=== PATIENT | female | born 1940 | race Caucasian/White ===

== ENCOUNTER 2017-04-27 14:46 | Inpatient (IN) | payer MEDICARE ==
[2017-04-27] MEDS ORDERED: Heparin 25,000 units/D5W 500 ML ONE (15:12)
[2017-04-27 15:32] LABS: #Basophils 0.1 thou/uL (0.0-0.2); #Eosinphils 0.1 thou/uL (0.0-0.7); #Lymphocytes 2.1 thou/uL (1.20-3.40); #Monocytes 0.9 thou/uL (0.11-0.59); #Neutrophils 16.5 thou/uL (1.40-6.50); %Basophils 0.3 % (0.0-1.0); %Eosinophils 0.6 % (0.0-10.0); %Lymphocytes 10.4 % (21.0-51.0); %Monocytes 4.7 % (0.0-10.0); Hematocrit 34.5 % (36.0-47.0); Mean Platelet Volume 8.3 fL (7.4-10.4); Red Blood Cell (RBC) Count 3.33 mill/uL (4.20-5.40); White Blood Cell (WBC) Count 19.7 thou/uL (4.8-10.8)
[2017-04-27 15:59] LABS: Chloride 102 mmol/L (98-107)
[2017-04-27 16:00] LABS: Calcium 8.9 mg/dL (7.8-10.44)
[2017-04-27 16:01] LABS: Globulin 2.9 g/dL (2.4-3.5); Protein, Total 5.9 g/dL (6.0-8.3)
[2017-04-27 16:02] LABS: Anion Gap 22 mmol/L (10-20); Bilirubin, Total 0.4 mg/dL (0.2-1.2); Carbon Dioxide 18 mmol/L (23-31)
[2017-04-27 16:03] LABS: Alkaline Phosphatase 75 U/L (40-150); Troponin I 1.068 ng/mL (< 0.028)
[2017-04-27 16:04] LABS: Calc. Creatinine Clearance 0 mL/min (70-130); Estimated GFR-MDRD 7
[2017-04-27 16:05] LABS: BUN (Urea Nitrogen) 45 mg/dL (9.8-20.1)
[2017-04-27 16:06] LABS: AST (SGOT) 28 U/L (5-34)
[2017-04-27 16:07] LABS: ALT (SGPT) 13 U/L (8-55); CK (CPK) 79 U/L (29-168)
--- NOTE | 2017-04-27 16:53 | RAD ---
PORTABLE CHEST: History: UT. Chest pain. Comparison: 07-17-15 FINDINGS: Left apical pleural thickening is stable. Mild nodularity in the left apex again noted. The lungs sh ow no evidence of acute infiltrate, vascular congestion or edema. Heart size upper normal. Aortic ca lcification is prominent. IMPRESSION: Stable chest findings without acute interval change. POS: H
[2017-04-27] MEDS ORDERED: Gentamicin Sulfate 80 MG in Premix Bag 1 BAG IVPB ONE (17:45)
[2017-04-27] MEDS ORDERED: Nitroglycerin 0.4 MG TAB (25 Tab Bottle) ONE (18:12)
[2017-04-27 18:42] LABS: Troponin I 1.304 ng/mL (< 0.028)
[2017-04-27] MEDS ORDERED: Nitroglycerin 0.4 MG TAB (25 Tab Bottle) SL PRN (18:52)
[2017-04-27] MEDS ORDERED: Clopidogrel Bisulfate 300 MG TAB PO SCH (19:00)
[2017-04-27] MEDS ORDERED: Heparin 25,000 units/D5W 500 ML IVPB SCH (19:00)
[2017-04-27] MEDS ORDERED: Heparin 10,000 UNITS/ 10 ML VIAL SLOW IVP SCH (19:00)
[2017-04-27] MEDS ORDERED: Pantoprazole 40 MG VIAL ONE (19:10)
[2017-04-27 19:15] LABS: Hematocrit 30.4 % (36.0-47.0)
[2017-04-27] MEDS ORDERED: Heparin 5,000 UNITS/ML VIAL ONE (19:15)
[2017-04-27 20:15] VITALS: BMI 26.4
[2017-04-27 21:07] LABS: Critical Call Chem Troponin I RESULT DECREASING
[2017-04-27] MEDS: Metoprolol Tartrate 25 MG TAB PO SCH (21:45)
[2017-04-27] MEDS: Atorvastatin Calcium 20 MG TAB PO SCH (21:46)
[2017-04-27] MEDS ORDERED: HumaLOG 300 UNITS/3 ML VIAL SC PRN (22:37)
[2017-04-27] MEDS ORDERED: Dextrose 50% Abboject 50 ML SYRINGE IVP PRN (22:37)
[2017-04-27] MEDS ORDERED: Dextrose 5% in Water 1,000 ML IV PRN (22:37)
[2017-04-27] MEDS ORDERED: Acetaminophen 500 MG TAB PO SCH (22:45)
--- NOTE | 2017-04-28 00:37 | HP ---
CHIEF COMPLAINT: Burning sensation in the chest. HISTORY OF PRESENT ILLNESS: This is a 77-year-old pleasant lady who was apparently in an usual stat e of health, got up and had just finished her peritoneal dialysis. When she experienced burning sen sation in her chest, she took some antacid, which did not give her any relief, when she tried to get up, she fell back into the chair and felt extremely weak. There was no sweating or radiation of th is pain anywhere. No fever or no chills. Because of the weakness and persistent burning pain, she decided to come to [facility] where they checked her troponin and it was elevated and they also foun d the white count to be elevated, because they were concerned for heart muscle damage, they sent out here to our emergency room where repeat troponin was 1.068. The patient also had an EKG, which nadege wed incomplete left bundle-branch block, some ST-T wave abnormalities in the lateral leads and becau se of that, she is going to be admitted to our hospital for evaluation of the burning sensation of t he chest and to rule out ACS. PAST MEDICAL HISTORY: Significant for paroxysmal atrial fibrillation, history of moderate aortic va lve stenosis, type 2 diabetes mellitus, longstanding hypertension, end-stage renal disease from hype rtensive nephropathy, on peritoneal dialysis right now. PAST SURGICAL HISTORY: Significant for status post arteriovenous fistula, status post DRIL, status post cardiac catheterization, status post cholecystectomy, status post cuffed-hemodialysis catheter placement, status post hysterectomy, status post renal arteriogram with stent placement. SOCIAL HISTORY: Does not smoke, drink, or do recreational drugs. She is retired. ALLERGIES: The patient's allergies are none. FAMILY HISTORY: Negative for diabetes and hypertension. HOME MEDICATIONS: Please see MAR. Patient's centrifugal chiller technician is Dr. Wilson who evaluated her in the past for atrial fibrillation and said sh e was in sinus. Dr. Yang is her fitter armament. Her primary care physician is Dr. Francis. REVIEW OF SYSTEMS: Significant for the burning chest pain and weakness. Otherwise, no fever, no ch ills, no headache, no hearing loss, no latencies, no cough, no diarrhea, dysuria, or polyuria. No m alexandra or mood changes. No neck pain. PHYSICAL EXAMINATION: VITAL SIGNS: Patient's blood pressure is 150/68, the recent one is 121/51, pulse is 84, respiration s 18, O2 saturation is 100% on room air, temperature afebrile. GENERAL: Patient is lying in bed, in no apparent distress right now. HEENT: Atraumatic, normocephalic. Pupils are equally round and reactive to light. Extraocular mov ements intact. Mucous membranes moist. NECK: Supple. No JVD. CHEST: Breath sounds. There are no rales or rhonchi. HEART: S1 and S2 normal, systolic murmur heard. ABDOMEN: Soft PD catheter, site looks clean. Abdomen is soft, nontender. EXTREMITIES: No cyanosis, clubbing, or edema. Distal pulses present. NEUROLOGICAL: Alert, awake, and oriented. No cranial deficits. No sensorimotor deficits. LABORATORY DATA AND DIAGNOSTICS: PTT is 59.5. CPK is 79. Sodium is 138, potassium is 4, carbon di oxide is 18, anion gap is 22, BUN is 45, creatinine is 1.96, glucose is 157, albumin is 3.0. LFTs a re normal. Troponin is 1.068. White blood cell count is 19.7 with 84 neutrophils, hemoglobin is 11 .1, hematocrit is 34.5. Patient's chest x-ray is negative. Lactic acid is pending. ASSESSMENT AND PLAN: 1. Chest discomfort with elevated troponin. Will treat it as non-ST elevation myocardial infarctio n. We will put the patient on heparin drip. We will consult Cardiology and follow their recommenda tions. We will control blood pressure and diabetes with tight control of diabetes and blood pressur e of the patient. 2. Leukocytosis without fever or abdominal pain, rule out peritonitis because the patient does urbano toneal dialysis. Dr. Yang has already ordered IV vancomycin and IV gentamicin. We will send the per itoneal fluid for culture. We will also do blood cultures of the patient. 3. End-stage renal disease on peritoneal dialysis, we will consult Dr. Yang. 4. Diabetes mellitus, on insulin sliding scale. 5. Hypertension. We will monitor that and do p.r.n. medications for now. 6. Paroxysmal atrial fibrillation. Patient in sinus rhythm right now, some acidosis, possibly meta bolic in origin. We will consult with Dr. Yang. 7. Sequential compression devices for deep venous thrombosis prophylaxis. I will work with Dr. José Antonio song and Dr. Yang and further caring for the patient.
[2017-04-28] MEDS ORDERED: Dextrose 5% in Water 1,000 ML IV PRN (03:29)
[2017-04-28] MEDS ORDERED: Ondansetron HCl/PF 4 MG/2 ML Vial IVP PRN (03:29)
[2017-04-28] MEDS ORDERED: Dextrose 50% Abboject 50 ML SYRINGE SLOW IVP PRN (03:29)
[2017-04-28] MEDS ORDERED: HYDROcodone/Acetaminophen 5/325 mg Tablet PO PRN (03:29)
[2017-04-28] MEDS ORDERED: Lidocaine 2% Viscous Solution 10 ML, Aluminum & Magnesium Hydroxide 30 ML SSW PRN ×2 (03:29)
[2017-04-28] MEDS ORDERED: Vancomycin HCl 1 GM in Sodium Chloride 0.9% 250 ML 250 ML IVPB SCH (03:29)
[2017-04-28] MEDS ORDERED: HumaLOG 300 UNITS/3 ML VIAL SC PRN ×2 (03:29→21:34)
[2017-04-28] MEDS ORDERED: Calcium Carbonate 500 MG ChewTAB PO PRN (03:29)
[2017-04-28] MEDS ORDERED: Gentamicin 80 MG/2 ML VIAL IVPB PRN (03:29)
[2017-04-28] MEDS ORDERED: Acetaminophen 325 MG TAB PO PRN (03:29)
[2017-04-28] MEDS ORDERED: Bisacodyl 5 MG TAB PO PRN (03:29)
[2017-04-28] MEDS ORDERED: Famotidine/PF 20 mg/2ml Vial SLOW IVP SCH ×2 (03:45→21:00)
[2017-04-28] MEDS ORDERED: VANCOMYCIN IVPB PRN (03:57)
[2017-04-28] MEDS ORDERED: GENTAMICIN IVPB PRN (03:57)
[2017-04-28] MEDS ORDERED: Vancomycin HCl 750 MG in Sodium Chloride 0.9% 250 ML 250 ML IVPB SCH (04:00)
[2017-04-28] MEDS ORDERED: Vancomycin HCl 500 MG in Sodium Chloride 0.9% 100 ML IVPB SCH (04:00)
[2017-04-28] MEDS ORDERED: Vancomycin HCl 1 GM in Premix Bag 1 BAG IVPB SCH (04:00)
[2017-04-28] MEDS ORDERED: HOLD VANCOMYCIN FOR LEVEL >20 FS SCH (04:00)
[2017-04-28] MEDS ORDERED: Vancomycin HCl 1.25 GM in Sodium Chloride 0.9% 250 ML 250 ML IVPB SCH ×4 (04:00)
[2017-04-28 04:20] LABS: #Basophils 0.1 thou/uL (0.0-0.2); #Eosinphils 0.3 thou/uL (0.0-0.7); #Lymphocytes 1.1 thou/uL (1.20-3.40); #Monocytes 0.7 thou/uL (0.11-0.59); #Neutrophils 13.2 thou/uL (1.40-6.50); %Basophils 0.3 % (0.0-1.0); %Eosinophils 2.2 % (0.0-10.0); %Lymphocytes 7.1 % (21.0-51.0); %Monocytes 4.7 % (0.0-10.0); Hematocrit 32.5 % (36.0-47.0); Mean Platelet Volume 8.5 fL (7.4-10.4); Red Blood Cell (RBC) Count 3.13 mill/uL (4.20-5.40); White Blood Cell (WBC) Count 15.4 thou/uL (4.8-10.8)
[2017-04-28 04:31] LABS: Lactic Acid - Sepsis 2.2 mmol/L (0.5-2.2)
[2017-04-28 04:40] LABS: Anion Gap 14 mmol/L (10-20); BUN (Urea Nitrogen) 42 mg/dL (9.8-20.1); BUN/Creatinine Ratio 7.42; Calc. Creatinine Clearance 9 mL/min (70-130); Calcium 8.9 mg/dL (7.8-10.44); Carbon Dioxide 26 mmol/L (23-31); Chloride 98 mmol/L (98-107); Estimated GFR-MDRD 7; Phosphorus 5.6 mg/dL (2.3-4.7)
[2017-04-28] MEDS: Aspirin 325 MG TAB PO SCH (08:53)
[2017-04-28] MEDS: Metoprolol Tartrate 25 MG TAB PO SCH ×2 (08:54→20:42)
--- NOTE | 2017-04-28 09:33 | CON ---
DATE OF CONSULTATION: 04/28/2017 HISTORY OF PRESENT ILLNESS: Ms. Carr is a 77-year-old white female with ESRD and admitted for pravin st pain. She described burning epigastric pain with radiation to the midsternum area of the chest. She is being admitted for rule out MN. We are now being consulted for her maintenance peritoneal d ialysis. She did underwent peritoneal dialysis last night and tolerated said treatment. REVIEW OF SYSTEMS: Patient denies any shortness of breath, but positive for chest pain. Denies any abdominal pain, no dysuria, no urinary frequency. No hematochezia, no melena, no hematemesis, no s yncopal episode, no diarrhea, no constipation, no headache, no diplopia, no hematochezia, no melena. Appetite and energy level are decreased. Positive for ? of depression. No fever or chills. MEDICATIONS: 1. Status post vancomycin, status post gentamicin. 2. [place] 5/325 q.4, aspirin 325 mg daily, Lipitor 20 mg q.p.m. 3. Heparin drip, hydralazine 10 mg IV q.4 p.r.n., Humalog sliding scale, nitroglycerin 0.4 mg subli ngual every 5 minutes p.r.n., vancomycin p.r.n. PAST MEDICAL HISTORY: ESRD - currently on peritoneal dialysis - secondary to hypertensive nephropat hy; longstanding hypertension; history of moderate aortic valve stenosis; status post acute respirat ory failure; type 2 diabetes mellitus; paroxysmal AFIB. PAST SURGICAL HISTORY: Status post PD catheter placement, status post AV fistula placement, status post DRIL, status post cardiac catheterization, status post cholecystectomy, status post cuffed hemo dialysis catheter placement, status post hysterectomy, status post renal arteriogram with stent plac ement. 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 Education high school. No history of smoking, no alcohol intake, no IV drug abuse. Status post bl ood transfusion. ALLERGIES: None. TRAUMA: None. IMMUNIZATIONS: Up to date. HOSPITALIZATIONS: Please see past medical history. FAMILY HISTORY: No family history of ESRD. PHYSICAL EXAMINATION: VITAL SIGNS: Blood pressure is noted at 126/35, heart rate 62, respiratory rate 14, temperature 98. 6, and pulse oximetry 96%. GENERAL: Noted to be awake, alert, comfortable, and not in distress. SKIN: Adequate turgor. HEENT: Pinkish conjunctivae, anicteric sclerae. NECK: No neck mass, no carotid bruits, no JVD. CHEST: No deformities. LUNGS: Clear breath sounds. No wheezing, no crackles. HEART: Normal sinus rhythm. No murmur, no gallops or rubs. ABDOMEN: Globular, soft, nontender. No masses. EXTREMITIES: No edema, no deformities. LABORATORY DATA AND IMAGIN. Laboratories of 04/28/2017, white count 15.4, hemoglobin 10.5, hematocrit 32.5. Sodium 135, pot assium 3.4, chloride 98, carbon dioxide 26, BUN 42, creatinine 5.66, glucose 252, calcium 8.9, phosp horus 5.6, albumin 2.8. 2. Troponin I 1.25. 3. On 04/27/2017, chest x-ray, no evidence of acute CHF. 4. PD fluid C\T\S no growth to date. ASSESSMENT AND PLAN: 1. End-stage renal disease, stable. We will continue current peritoneal dialysis regimen. Tolerat ing said dialysis. Fluid removal only as tolerated. 2. Elevated white count, empiric IV antibiotics. Patient is status post gentamicin and vancomycin. Await results of peritoneal dialysis fluid culture. 3. Chest pain/elevated troponin I - Cardiology consult has been done. Awaiting input from Dr. Wilson . For the moment, agree with current management.
[2017-04-28 10:15] LABS: Vancomycin, Random 33.2 ug/mL (See Comment)
--- NOTE | 2017-04-28 12:44 | PDOC.PN ---
- Subjective Encounter Start Date: 04/28/17 Encounter Start Time: 12:42 Patient seen and examined. No new complaints. No overnight events - Objective MAR Reviewed: Yes Vital Signs & Weight: Vital Signs (12 hours) Temp Pulse Resp BP Pulse Ox 04/28/17 08:00 98.2 F 63 18 107/35 L 96 04/28/17 07:45 98.2 F 63 18 96 04/28/17 04:10 98.6 F 62 14 126/35 L 96 Weight Weight 158 lb 12.8 oz I&O: 04/27/17 04/28/17 04/29/17 06:59 06:59 06:59 Intake Total 1000 Balance 1000 Result Diagrams: 04/28/17 04:00 04/28/17 04:00 Additional Labs: Accuchecks 04/28/17 04/28/17 04/27/17 11:39 05:51 20:26 POC Glucose 117 H 229 H 240 H Phys Exam - Physical Examination Constitutional: NAD HEENT: PERRLA Neck: no JVD Respiratory: no wheezing Cardiovascular: no significant murmur Gastrointestinal: non-tender pd cath noted. no e/o cellulitis Neurological: normal sensation Psychiatric: A&O x 3 Dx/Plan (1) Elevated WBC count Code(s): D72.829 - ELEVATED WHITE BLOOD CELL COUNT, UNSPECIFIED Status: Acute Comment: no clear etiology responding to emperic abx suspect sepsis due to peritoneal infection (2) Elevated troponin Code(s): R74.8 - ABNORMAL LEVELS OF OTHER SERUM ENZYMES Status: Acute Comment: due to infection dr reyes recommendations noted stop heparin medical mx (3) Anemia Code(s): D64.9 - ANEMIA, UNSPECIFIED Status: Chronic (4) Aortic stenosis Code(s): Q25.3 - SUPRAVALVULAR AORTIC STENOSIS Status: Chronic (5) ESRD (end stage renal disease) on dialysis Code(s): N18.6 - END STAGE RENAL DISEASE; Z99.2 - DEPENDENCE ON RENAL DIALYSIS Status: Chronic Comment: Now on hemodialysis. (6) Paroxysmal atrial fibrillation Code(s): I48.0 - PAROXYSMAL ATRIAL FIBRILLATION Status: Chronic (7) Type 2 diabetes mellitus Status: Chronic - Plan * d/g to floor * monitor wbc * card and renal input appreciated
[2017-04-28] MEDS: Atorvastatin Calcium 20 MG TAB PO SCH (20:42)
[2017-04-29 04:46] LABS: #Eosinphils 0.5 thou/uL (0.0-0.7); #Lymphocytes 1.4 thou/uL (1.20-3.40); #Monocytes 0.8 thou/uL (0.11-0.59); #Neutrophils 9.5 thou/uL (1.40-6.50); %Basophils 0.4 % (0.0-1.0); %Eosinophils 3.7 % (0.0-10.0); %Lymphocytes 11.5 % (21.0-51.0); %Monocytes 6.5 % (0.0-10.0); Hematocrit 29.6 % (36.0-47.0); Mean Platelet Volume 8.4 fL (7.4-10.4); Red Blood Cell (RBC) Count 2.86 mill/uL (4.20-5.40); White Blood Cell (WBC) Count 12.2 thou/uL (4.8-10.8)
[2017-04-29 05:17] LABS: Anion Gap 12 mmol/L (10-20); BUN (Urea Nitrogen) 44 mg/dL (9.8-20.1); BUN/Creatinine Ratio 7.83; Calc. Creatinine Clearance 9 mL/min (70-130); Calcium 8.4 mg/dL (7.8-10.44); Carbon Dioxide 28 mmol/L (23-31); Chloride 99 mmol/L (98-107); Estimated GFR-MDRD 7; Phosphorus 5.5 mg/dL (2.3-4.7)
[2017-04-29 07:54] VITALS: BP 135/42; TEMP 98
--- NOTE | 2017-04-29 08:19 | CON ---
DATE OF CONSULTATION: 04/28/2017 DATE OF ADMISSION: 04/27/2017 INDICATION FOR CONSULTATION: A 77-year-old female with complaints of chest discomfort, burning sens ation. This occurred after she fell from a chair and hit her head on the bed. We were asked to see her in consultation as she had some slight abnormalities of her cardiac enzymes. HISTORY OF PRESENT ILLNESS: This very unfortunate 77-year-old female, who has been followed by me f or several years. She had a cardiac catheterization less than 2 years ago back in 06/2015, at which time she was found to have plaque in the LAD and the right coronary. The left circumflex was free of any significant flow-limiting disease. Left ventricular systolic function was normal. She has c omplained of chest pain at that time and had some abnormal EKG changes which are still present today . EKG is unchanged from 2014 with some T-wave inversions in the lateral leads, but she does not hav e any significant stenosis involving the left circumflex. There were no lesions noted at that time. She was at home yesterday morning after she had gotten up and she was going to disconnect her dial ysis catheter. She was sitting in her chair and apparently fell from the chair, she hit her head an d she complained of some chest discomfort also which she has been having on and off for quite some t jossy, but she describes as burning sensation. She had actually already taken some antacids orally an d the discomfort had already improved. She also has a history of a hiatal hernia. When she fell fr om the chair, she hit her head on the side of the bed and also may have hit her chest area. She now complains of some soreness in the chest, her was unable to pick her up from the floor, he c alled the neighbor, they were still unable to pick her up from the floor and get her back to the bed or to the chair, so she called 911 and she was taken by ambulance to the emergency room. While she was there, she had laboratory data performed which showed a slight elevation of cardiac enzymes wit h troponin I of 1.06 with the MBs were negative. The second set of cardiac enzymes showed troponin I of 1.3, and the second to third set is now decreased to 1.25 with an MB, actually originally it wa s 4.8. She does have end-stage renal disease and is on peritoneal dialysis, which may be an indicat ion of a slight elevation of cardiac enzymes. She now complains of some chest soreness, but the bur hodan sensation has improved. She had no significant EKG changes that would indicate ST segment elev ation or any worsening of her cardiac status from previous evaluations. Her EKG does show an incomp lete left bundle-branch block with some T-wave inversions, but again these are unchanged from EKGs b ack in 2015 and 2016. She also was found to have an elevated white blood cell count and she may hav e a low-grade infection, thus she is being evaluated for this and this may also be an indication of why the cardiac enzymes are slightly elevated, but with her chronic kidney disease and elevation in the creatinine which is 5.96 and BUN of 45, but this would not be unusual for her to have a slight e levation of the troponin I. At this time, she is actually comfortable. She is in the room with her . She does have some chest soreness, but denies any significant burning at this time. When she had the discomfort, she said it radiated from the abdominal area up into the retrosternal area and described it as being a burning sensation. PAST MEDICAL HISTORY: Significant for mild coronary artery disease, end-stage renal disease on urbano toneal dialysis, diabetes, hypertension, and dyslipidemia. She also has aortic valve stenosis. Her last echocardiogram shows a valve area was more than 1.5 cm2 and also by cardiac catheterization, more rebollar she did not have critical aortic valve stenosis. She also had some right carotid artery steno sis and she has undergone a carotid endarterectomy. 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 Her carotid endarterectomy was in 2011. She is noninsulin dependent diabetes. She has fibromyalgia. She has had knee replacement, cholecystectomy, and hysterectomy. She has had a left arm fistula for dialysis. She also has had abdominal peritoneal dialysis placed. She has hyperlipidemia. ALLERGIES: None. MEDICATIONS: Prior to admission included gabapentin 300 mg b.i.d., iron tablets once a day, pantopr azole 40 mg a day, sertraline 50 mg a half a tablet daily, clonidine 0.1 mg b.i.d., amlodipine 5 mg b.i.d., Novolin insulin 70/30, 100 units as needed, and aspirin 81 mg daily. REVIEW OF SYSTEMS: A 12-point review of systems is unremarkable except as noted in the history of p resent illness except for the following: She complains of the abdominal discomfort. She has a hiat al hernia. She has had problem after she eats with discomfort. She also has some problems with fat igue. She complains of some restless legs or pain in her lower extremities at times and she says sh e has been weak and she has been unable to stand as much or do as much activity as she would like to , otherwise she has had no significant complaints from the review of systems except other than what is noted in the history of the present illness. PHYSICAL EXAMINATION: GENERAL: Reveals a well-developed, well-nourished female. VITAL SIGNS: Her blood pressure is 107/35, heart rate is 63 and regular, respiratory rate is 18. S he is afebrile at this time. HEENT: Shows the head to be normocephalic. She has a small ecchymotic area and there was a hematom a on the right frontal area just above the eyebrow to the right side, probably from the fall last , otherwise unremarkable. Carotid bruits are present. She has had a well-healed surgical inci jong of the carotid area from her previous carotid endarterectomy on the right side. There was no J VD noted. CHEST: Clear to auscultation without rales, rhonchi or wheezing. CARDIOVASCULAR: Exam reveals a regular rate and rhythm. She has a harsh systolic murmur over the a ortic area which radiates up to the both carotids and also down to the abdominal area. There were n o heaves or thrills noted. ABDOMEN: She does have some tenderness in the epigastric area and across the lower chest area. The re is pain on palpation. She has positive bowel sounds. EXTREMITIES: Showed no clubbing or cyanosis. The popliteal pulses are present. She has decreased pedal pulses, but they are present but difficult to palpate. SKIN: Warm and dry. NEUROLOGIC: She appears to be intact, but does appear to be somewhat fatigued. LABORATORY DATA: Her laboratory data shows potassium of 4.0. Her creatinine was 5.96. BUN was 45. Blood sugar is 157-240 anywhere around that range. Hemoglobin was 11.9 with a creatinine of 34.5, this decreased today to 10.5 and 32.5 with a WBC yesterday of 19.7, decreasing down to 15.4 today. DIAGNOSTIC DATA: EKG shows an incomplete left bundle-branch block with nonspecific T-wave changes w ith T-wave inversions in the lateral leads comparable with the EKG is in the past. There was no sig nificant change. Her cardiac enzymes are as noted above. At this time, we will continue to follow her. It is unlikely that this is any significant indication of myocardial infarction, most likely i s due to her chronic kidney disease. Stress-induced perhaps but no indication that she has suffered a myocardial infarction. She did have a cardiac catheterization less than 2 years ago which showed plaque in the LAD and the right coronary artery without any significant EKG changes, unlikely she h as had any significant changes. However, should enzymes trend upwards again where she have more sig nificant chest pain which would be more indicative of cardiac pain, then we certainly can reevaluate the issue and can consider cardiac catheterization. IMPRESSION: 1. End-stage renal disease. She is on hemo/peritoneal dialysis. She will continue this. 2. History of anemia. This appears to be relatively stable. Hemoglobin today is 10.5, which may b e dilutional. 3. History of hiatal hernia which most likely is related to some of her pain. 4. Fibromyalgia. 5. Depression. 6. Diabetes. 7. Dyslipidemia. These will be dealt by the primary care service. At this time from a cardiac sta ndpoint, I do not think it is indicated that we proceed with cardiac catheterization. The patient w ill be able to eat and then will continue to follow her. We need to determine whether or not the el evation in the white blood cell count is significant whether or not this may be also due to stress.
[2017-04-29] MEDS ORDERED: Potassium Chloride 20 MEQ TAB PO SCH (09:15)
--- NOTE | 2017-04-29 09:38 | PDOC.CTH ---
Cardiology Progress Note - Subjective pt. seen and eval. today. No cardiac complaints. Feels ok this AM. - Objective Vital Signs Temp Pulse Resp BP BP Pulse Ox 04/29/17 07:00 98.0 F 68 16 135/42 L 97 04/29/17 04:00 98.1 F 55 L 18 126/44 L 97 04/29/17 00:00 99.1 F 59 L 16 128/45 L 100 Weight 158 lb 12.8 oz 04/28/17 04/29/17 04/30/17 06:59 06:59 06:59 Intake Total 1720 Output Total 625 Balance 1095 - Physical Examination General/Neuro: alert & oriented x3 Lungs: CTA Heart: PMI normal, RRR Abdomen: NT/ND Extremities: other: Other PE findings: ,no edema. - Labs Result Diagrams: 04/29/17 03:48 04/29/17 03:48 Troponin/CKMB CK-MB (CK-2) 4.8 ng/mL (0-6.6) 04/27/17 15:25 Troponin I 1.250 ng/mL (< 0.028) H* 04/27/17 20:27 - Assessment/Plan 1.CAD- stable. 2.Chest pain_ s/p fall. Non-cardiac. EKG unchanged. T.I. indeterminate and not unusual for ESRD.Pt. can be d/c'd to home. 3.ESRD- continue peritoneal dialysis. Pt. has an appointment to see me in the office in the next 2 months. Review of Systems - Review of Systems Constitutional: reports: no symptoms reported Respiratory: reports: no symptoms reported Cardiac (ROS): reports: no symptoms reported ABD/GI: reports: no symptoms reported Musculoskeletal: reports: no symptoms reported Neurological: reports: no symptoms reported
[2017-04-29] MEDS: Aspirin 325 MG TAB PO SCH (10:03)
[2017-04-29] MEDS: Metoprolol Tartrate 25 MG TAB PO SCH (10:06)
--- NOTE | 2017-04-29 10:35 | PRG ---
DATE OF SERVICE: 04/29/2017 SUBJECTIVE: Ms. Carr is a 77-year-old white female with ESRD admitted for chest pain. She is ru ng evaluated by Cardiology. The plan is simply conservative management. No indication for any card iac catheterization. We are currently following up this patient for her maintenance peritoneal dial ysis. She underwent peritoneal dialysis without any difficulties except for the fact that she feels full early this morning at the end of her peritoneal dialysis. We decided to drain the PD fluid an d this helped improve the patient. PHYSICAL EXAMINATION: VITAL SIGNS: Blood pressure is 135/42, heart rate 68, respiratory rate 16, temperature 98, pulse ox 97%. GENERAL: Noted to be awake, alert, comfortable, not in distress. SKIN: Adequate turgor. HEENT: She has pinkish conjunctivae, anicteric sclerae. NECK: No neck mass, no carotid bruits, no JVD. CHEST: No deformities. LUNGS: Clear breath sounds. No wheezing, no crackles. HEART: Normal sinus rhythm. No murmur, no gallops, no rubs. ABDOMEN: Globular, soft, nontender, no masses. There is a PD catheter in the abdomen. EXTREMITIES: No edema, no deformities. MEDICATIONS: 04/29/2017 - Reviewed. LABORATORY: 04/29/2017 - White count 12.2, hemoglobin 9.5, sodium 136, potassium 3.1, chloride 99, carbon dioxide 28, BUN 44, creatinine 5.62, glucose 197. Phosphorus is 5.5, calcium 8.4. ASSESSMENT AND PLAN: 1. End-stage renal disease, stable. Tolerating current peritoneal dialysis. Adjustment with the P D was done due to the feeling of abdominal fullness early this a.m. and with nausea. We did adjust the machine to have immediate PD fluid drained with her and she responded with this. 2. Hyperphosphatemia. Consider starting as an outpatient Renvela 800 mg 1 tab t.i.d. 3. Anemia. Currently receiving in the outpatient setting. 4. Chest pain resolved, most likely noncardiac in etiology. This could simply reflect acid reflux. 5. Elevated white count - I reviewed the blood culture and PD fluid culture and so far no growth to date. I will probably consider discontinuing IV antibiotics after the last dose today. I agree with planned management. Agree for discharge.
--- NOTE | 2017-04-29 10:39 | PDOC.PN ---
- Subjective Encounter Start Date: 04/29/17 Encounter Start Time: 10:38 Patient seen and examined. No new complaints. No overnight events - Objective MAR Reviewed: Yes Vital Signs & Weight: Vital Signs (12 hours) Temp Pulse Resp BP BP Pulse Ox 04/29/17 08:00 98.0 F 68 16 100 04/29/17 07:00 98.0 F 68 16 135/42 L 97 04/29/17 04:00 98.1 F 55 L 18 126/44 L 97 04/29/17 00:00 99.1 F 59 L 16 128/45 L 100 Weight Weight 158 lb 12.8 oz I&O: 04/28/17 04/29/17 04/30/17 06:59 06:59 06:59 Intake Total 1720 240 Output Total 625 Balance 1095 240 Result Diagrams: 04/29/17 03:48 04/29/17 03:48 Additional Labs: Accuchecks 04/29/17 04/28/17 04/28/17 05:54 21:06 16:52 POC Glucose 159 H 304 H 171 H 04/28/17 11:39 POC Glucose 117 H Phys Exam - Physical Examination Constitutional: NAD HEENT: moist MMs Neck: no JVD Respiratory: no rales Cardiovascular: no significant murmur Gastrointestinal: non-tender Musculoskeletal: pulses present Neurological: normal sensation Psychiatric: A&O x 3 Dx/Plan (1) Elevated WBC count Code(s): D72.829 - ELEVATED WHITE BLOOD CELL COUNT, UNSPECIFIED Status: Acute Comment: no clear etiology responding to emperic abx suspect sepsis due to peritoneal infection (2) Elevated troponin Code(s): R74.8 - ABNORMAL LEVELS OF OTHER SERUM ENZYMES Status: Acute Comment: due to infection dr reyes recommendations noted stop heparin medical mx (3) Anemia Code(s): D64.9 - ANEMIA, UNSPECIFIED Status: Chronic (4) Aortic stenosis Code(s): Q25.3 - SUPRAVALVULAR AORTIC STENOSIS Status: Chronic (5) ESRD (end stage renal disease) on dialysis Code(s): N18.6 - END STAGE RENAL DISEASE; Z99.2 - DEPENDENCE ON RENAL DIALYSIS Status: Chronic Comment: Now on hemodialysis. (6) Paroxysmal atrial fibrillation Code(s): I48.0 - PAROXYSMAL ATRIAL FIBRILLATION Status: Chronic (7) Type 2 diabetes mellitus Status: Chronic - Plan * doing well * d/c home * f/u with renal and card as out pt
--- NOTE | 2017-04-29 15:26 | DIS ---
DATE OF ADMISSION: 04/27/2017 DATE OF DISCHARGE: 04/29/2017 DIAGNOSES ON DISCHARGE: 1. Chest discomfort with intermittent elevated troponin, noncardiac in origin, possibly secondary t o musculoskeletal in origin and indeterminate troponins in the phase of end-stage renal disease. 2. Elevated leukocytes without any clearcut site of infection, no fever, no abdominal pain resolved with IV antibiotics. Dr. Trey mills with discharge. 3. End-stage renal disease on peritoneal dialysis. We will consult Dr. Trey mills with discharging. 4. Diabetes, stable. 4. Hypertension, stable. 5. Paroxysmal atrial fibrillation, stable. DISCHARGE MEDICATIONS: The patient's discharge medications are the same as admit medications. CONSULTANTS: Dr. Wilson and Dr. Yang. BRIEF HOSPITAL COURSE: A 77-year-old pleasant lady came into the hospital with burning sensation in the chest and weakness. Please refer to my admitting H\T\P for further details. The patient was e valuated by Nephrology was empirically treated with vancomycin and gentamicin with elevated white co unt. Peritoneal culture and blood culture was negative. Dr. Aldana evaluated the patient and determ ined that the chest pain was noncardiac in origin, possibly secondary to fall, both of them were com fortable with the patient going home today and right now, patient is medically stable to be discharg ed with outpatient follow up with them. She also was asked to follow up with PCP in 1 week. Total time for this discharge took 35 minutes. She is asked to come back to the emergency room in c ase symptoms recur.
== END 2017-04-29 10:10 | disposition home or self-care (01) | DRG 682 ==
LOC: ERS 14:46 → IMCU/EMU 19:55
PROVIDERS: ADMIT Internal Medicine; ATTEND Internal Medicine
DX: I12.0 Hypertensive chronic kidney disease with stage 5 chronic kidney disease or end stage renal disease (principal); N18.6 End stage renal disease; E11.22 Type 2 diabetes mellitus with diabetic chronic kidney disease; I48.0 Paroxysmal atrial fibrillation; E83.39 Other disorders of phosphorus metabolism; Z99.2 Dependence on renal dialysis; Z90.710 Acquired absence of both cervix and uterus; Z90.49 Acquired absence of other specified parts of digestive tract; Z96.659 Presence of unspecified artificial knee joint; M79.7 Fibromyalgia; D72.829 Elevated white blood cell count, unspecified; D64.9 Anemia, unspecified; F32.9 Major depressive disorder, single episode, unspecified; E78.5 Hyperlipidemia, unspecified; I35.0 Nonrheumatic aortic (valve) stenosis; I44.7 Left bundle-branch block, unspecified
CPT/HCPCS: 36415; 36416; 71010; 80053; 80069; 80170; 80202; 82553; 83605; 84484; 85025; 85730; 87040; 87070; 87205; 87340; 90945; 93005; 96365; 96366; 96367; 96375; C9113; G0257; J1580; J1644; J3370; J7050

== ENCOUNTER 2017-09-04 20:09 | Inpatient (IN) | payer MEDICARE ==
[2017-09-04] MEDS ORDERED: Ondansetron HCl/PF 4 MG/2 ML Vial ONE (22:30)
[2017-09-04 22:48] LABS: Troponin I 1.371 ng/mL (< 0.028)
[2017-09-04 23:42] VITALS: BMI 28.0
[2017-09-05] MEDS ORDERED: Fentanyl 100 MCG/2 ML VIAL SLOW IVP PRN ×2 (00:32→00:35)
[2017-09-05] MEDS ORDERED: Lorazepam 2 MG/ML VIAL SLOW IVP SCH (00:45)
[2017-09-05] MEDS ORDERED: Pantoprazole 40 MG VIAL IVP SCH (00:45)
[2017-09-05] MEDS ORDERED: Dextrose 5% in Water 1,000 ML IV PRN (03:45)
[2017-09-05] MEDS ORDERED: Nitroglycerin 0.4 MG TAB (25 Tab Bottle) PO PRN (03:45)
[2017-09-05] MEDS ORDERED: Dextrose 50% Abboject 50 ML SYRINGE SLOW IVP PRN (03:45)
[2017-09-05] MEDS ORDERED: Ondansetron ODT 4 MG TAB PO PRN (03:47)
[2017-09-05] MEDS ORDERED: Senokot 8.6 MG TAB PO PRN (03:47)
[2017-09-05] MEDS ORDERED: Labetalol HCl 100 MG/20 ML VIAL SLOW IVP PRN (03:48)
[2017-09-05] MEDS ORDERED: Fentanyl 100 MCG/2 ML VIAL SLOW IVP SCH (04:00)
--- NOTE | 2017-09-05 04:13 | HP ---
DATE OF ADMISSION: 09/04/2017 The patient was seen and examined on 09/04/2017. CHIEF COMPLAINT: Chest discomfort. Patient is transfer from [facility]. PRIMARY CARE PHYSICIAN: Dr. Francis. PRIMARY MEDICAL RECEPTIONIST BILLER: Dr. Wilson. PRIMARY SHIP BOSS: Dr. Yang. HISTORY OF PRESENT ILLNESS: The patient is a 77-year-old female with mild coronary artery disease, h ypertension, diabetes mellitus type 2, end-stage renal disease on peritoneal dialysis, presented to [facility] with chest discomfort that started earlier today while she was at home. The c hest discomfort immediately started after she took pill for high potassium. She is unable to recall the name of the medicine. It was burning sensation in her mid chest. She rates the pain as 7/10, in termittent without any aggravating or relieving symptoms. She denies any diaphoresis, nausea, vomiti ng, dyspepsia syncope, or palpitations. No fever or chills reported. She also had some abdominal di scomfort without any diarrhea, constipation, or change in bowel habits. At [facility], she underwent a CT scan of the abdomen that was consistent with free air. Chest x-ray was negative f or infiltrate. She received vancomycin and Zosyn and was transferred to this facility for hospital a dmission. WBC count at [place] was 21.7 with left shift. PAST MEDICAL HISTORY: 1. End-stage renal disease on peritoneal dialysis. 2. Hypertension. 3. Diabetes mellitus type 2. 4. Mild coronary artery disease with last cardiac catheterization in 2014. 5. Renal artery stenosis, status post stent placement with in-stent restenosis. 6. Mild to moderate aortic valve stenosis. 7. Paroxysmal atrial fibrillation. PAST SURGICAL HISTORY: 1. Dialysis access. 2. Cardiac catheterization. 3. Cholecystectomy. 4. Hysterectomy. 5. Renal artery stent placement. 6. EGD in 06/2017 that showed minimal reactive gastropathy without any H. pylori organism. ALLERGIES: No known drug allergies. CURRENT HOME MEDICATIONS: Amlodipine 5 mg b.i.d., Lipitor 20 mg daily, clonidine as needed, gabapent in 300 mg b.i.d., NPH insulin sliding scale, Protonix 40 mg daily, ranitidine 150 mg daily, Zoloft 12 .5 mg daily, Renvela 800 mg three times daily. SOCIAL HISTORY: Patient currently lives at home. Denies any smoking, alcohol, or drug use. She is retired. She is FULL CODE makes her own decisions with the help of her family. FAMILY HISTORY: Negative for diabetes mellitus type 2, hypertension or heart disease. REVIEW OF SYSTEMS: The following complete review of systems was negative, unless otherwise mentioned in the HPI or below: CONSTITUTIONAL: Weight loss or gain, ability to conduct usual activities. SKIN: Rash, itching. EYES: Double vision, pain. ENT/MOUTH: Nose bleeding, neck stiffness, pain, tenderness. CARDIOVASCULAR: Palpitations, dyspnea on exertion, orthopnea. RESPIRATORY: Shortness of breath, wheezing, cough, hemoptysis, fever or night sweats. GASTROINTESTINAL: Poor appetite, abdominal pain, heartburn, nausea, vomiting, constipation, or diarr hea. GENITOURINARY: Urgency, frequency, dysuria, nocturia. MUSCULOSKELETAL: Pain, swelling. NEUROLOGIC/PSYCHIATRIC: Anxiety, depression. ALLERGY/IMMUNOLOGIC: Skin rash, bleeding tendency. PHYSICAL EXAMINATION: VITAL SIGNS: Showed temperature 98, respiration of 18, pulse rate of 71, blood pressure of 138/56 wi th O2 saturation of 99% on room air. GENERAL: A 77-year-old female in mild to moderate distress due to epigastric/chest discomfort. HEENT: Head: Atraumatic, normocephalic. Sclerae are anicteric. Moist mucous membranes. No oral l esion. NECK: Supple, no JVD appreciated. No carotid bruit. LUNGS: Clear to auscultation bilaterally. No wheezing, rales, or rhonchi. HEART: S1, S2 present. Regular rate and rhythm, 2/6 systolic murmur over the aortic area. No repro ducible chest pain. ABDOMEN: Soft, generalized tenderness on superficial palpation. No rebound or guarding. Bowel soun ds were present. EXTREMITIES: Trace edema in bilateral lower extremities. SKIN: Warm and dry. LYMPH NODES: No palpable lymph nodes in the neck. PERIPHERAL VASCULAR: Radial pulses palpable bilaterally. MUSCULOSKELETAL: No joint swelling or tenderness. NEUROLOGIC: Grossly nonfocal, moves all four extremities. PSYCHIATRY: Alert, awake, oriented x3. LABORATORY AND X-RAY FINDINGS: WBC 21.7 with hemoglobin 11.8 with left shift. BUN 51, creatinine 8. 9. Lipase was 12. Sodium 133, potassium 4.5, chloride 91, bicarbonate 24. INR 0.9, troponin 1.31. EKG by my review showed sinus rhythm with first degree AV block with nonspecific ST-T wave changes i n the lateral leads. Chest x-ray at [facility] as discussed above. CT scan of the abdomen in [facility] a s discussed above. IMPRESSION AND PLAN: 1. Chest discomfort with elevated troponins. Maximum troponin was 1.37. 2. Suspected non-ST elevation myocardial infarction. 3. Mild coronary artery disease with last cardiac catheterization in 2014. 4. Mild to moderate aortic valve stenosis. 5. History of renal artery stenosis with in-stent restenosis. 6. Diabetes mellitus type 2. 7. End-stage renal disease on peritoneal dialysis. 8. Hypertension. 9. Paroxysmal atrial fibrillation. 10. Leukocytosis with free air in the abdomen, probably secondary to peritoneal dialysis. Rule out bacterial peritonitis. 11. Gastroesophageal reflux disease. PLAN: Patient will be monitored in the telemetry unit. Patient has been already evaluated by Jenise v[facility] in the emergency room. Patient will be kept n.p.o. We will consult Nephrology and Cardiol ogy. We will repeat troponins in the a.m. Dialysis per Nephrology. Insulin sliding scale. We will resume home medications. We will add PPI intravenously. Repeat labs on the daily basis. Await luis ghotra from [facility]. Peritoneal fluid cultures have been sent from the emergency room. Empiric antib iotics for bacterial peritonitis. Plan of care was discussed with the patient. She stated understanding.
[2017-09-05] MEDS: Nitroglycerin 2% Ointment 1 INCH/1 GM Packet TOP SCH ×3 (05:04→21:00)
[2017-09-05] MEDS: Cefepime 1 GM in Syringe 10 ML SLOW IVP SCH (05:04)
[2017-09-05 05:46] LABS: CKMB 4.4 ng/mL (0-6.6)
[2017-09-05 05:50] LABS: Critical Call Chem Troponin I RESULT DECREASING; Troponin I 1.136 ng/mL (< 0.028)
[2017-09-05 06:17] LABS: #Eosinphils 0.2 thou/uL (0.0-0.7); #Lymphocytes 1.4 thou/uL (1.20-3.40); #Monocytes 1.1 thou/uL (0.11-0.59); #Neutrophils 15.9 thou/uL (1.40-6.50); %Basophils 0.2 % (0.0-1.0); %Lymphocytes 7.6 % (21.0-51.0); %Monocytes 5.8 % (0.0-10.0); %Neutrophils 85.5 % (42.0-75.0); Hemoglobin 9.9 g/dL (12.0-16.0); MDiff Complete? YES; Macrocytosis MODERATE=16-30 cells (100X) (0-5/hpf); Mean Corpuscular Hemoglobin 33.9 pg (27.0-31.0); Mean Platelet Volume 8.4 fL (7.4-10.4); PLT Morphology Comment Appears Adequate; Platelet Count 294 thou/uL (130-400); RBC Distribution Width 12.7 % (11.5-14.5); Red Blood Cell (RBC) Count 2.92 mill/uL (4.20-5.40); White Blood Cell (WBC) Count 18.6 thou/uL (4.8-10.8)
[2017-09-05 07:00] LABS: Anion Gap 18 mmol/L (10-20); BUN (Urea Nitrogen) 55 mg/dL (9.8-20.1); Calc. Creatinine Clearance 6 mL/min (70-130); Calcium 8.6 mg/dL (7.8-10.44); Carbon Dioxide 24 mmol/L (23-31); Chloride 95 mmol/L (98-107); Estimated GFR-MDRD 4; Glucose 62 mg/dL (83-110); Potassium 4.9 mmol/L (3.5-5.1); Sodium 132 mmol/L (136-145)
--- NOTE | 2017-09-05 07:30 | CON ---
DATE OF CONSULT: 09/04/2017 HISTORY OF PRESENT ILLNESS: Leslie Carr is a 77-year-old female who lives in [facility] on perito jay dialysis. Patient states she take a pill today, had burning in her throat and upper chest and b estelita having upper abdominal pain. She is mainly focused on her burning pain from swallowing a large pill. She presented to [place] and had a CAT scan that demonstrated some free intraperitoneal air. She does have some abdominal tenderness. Her white blood cell count was elevated to 20,000, and she was transferred to this hospital for evaluation. She dialyzes at home. Peritoneal dialysis, followe d Dr. Asa Yang. She does have a left functioning left arm fistula. She has a right antecubital vein. She has received intravenous antibiotics. The patient is thinking about returning to hemodialysis. MEDICATIONS: Gabapentin 300 mg twice a day, Protonix 40 mg a day, sertraline 50 mg 12.5 mg once a da y, Humulin 70/30, 18 units a.m., 9 units at bedtime, amlodipine 2.5 mg twice a day, renal multivitami n daily, atorvastatin 20 mg a day, aspirin 81 mg a day. ALLERGIES: None. TOBACCO: None. ALCOHOL: None. PAST MEDICAL HISTORY: Morbid obesity, diabetes, hypertension, history of atrial fibrillation, follow ed by Dr. Wilson. History of cardiac valve stenosis, type 2 diabetes mellitus, hypertension, end-stage renal disease. PAST SURGICAL HISTORY: Trialysis catheter 07/2015. On 07/17/2015, cuffed tunnel hemodialysis cathet er, right IJ, left arm primary fistula, basilic vein outflow only. On 08/14/2015, basilic vein trans position fistula, arteriogram left arm when she developed arterial steal several months later and on 10/03/2015, she underwent a DRIL procedure using left thigh greater saphenous vein. She has had a PD catheter placed. PHYSICAL EXAMINATION: VITAL SIGNS: A 70 kilograms, blood pressure 130/56, heart rate 71, respiratory rate 18, 98 degrees, 99% on room air. HEENT: Unremarkable. LUNGS: Clear to auscultation. CARDIAC: Regular rate and rhythm without murmur or gallop. ABDOMEN: Soft. Diminished bowel sounds. Mild tenderness throughout, but no guarding or peritoneal signs. EXTREMITIES: Unremarkable. ASSESSMENT AND PLAN: Mild abdominal tenderness, leukocytosis, free intraperitoneal and the patient w ith peritoneal dialysis, and anterior pneumoperitoneum is not unusual on peritoneal dialysis patient. Fluid effluent has been obtained and sent for culture. Fluid appears to be clear by Dr. Moody. Plan at this time is admitted to the medical service and observe. I would treat with antibiotics. S he has not had prior episodes of peritonitis. Patient has expressed interest in returning to hemodia lysis. It may be that she needs her peritoneal dialysis catheter removed in this hospitalization. W e will leave that discussion with Dr. Yang and follow her with the medical service.
[2017-09-05] MEDS: Aspirin 325 MG TAB PO SCH (08:39)
[2017-09-05] MEDS: Heparin 5,000 UNITS/ML VIAL SC SCH ×2 (08:39→21:00)
[2017-09-05] MEDS: Docusate 100 MG CAP PO SCH ×2 (08:39→21:00)
[2017-09-05] MEDS: Pantoprazole 40 MG VIAL IVP SCH (08:39)
--- NOTE | 2017-09-05 08:56 | CON ---
DATE OF CONSULTATION: 09/05/2017 CARDIOLOGY CONSULTATION PRIMARY QUALITY ASSURANCE MONITOR FINAL: Dr. Sonu Wilson. REASON FOR CONSULTATION: Chest pain, increased troponin level. HISTORY OF PRESENT ILLNESS: Ms. Leslie Carr is a 77-year-old woman with a history of mild coronary artery disease, admitted with burning in her chest. The patient states she has had this burning in her chest, which has been continuous since yesterday. It is duplicated with palpation of her chest. She said the only thing that tends to help it is when she has an ice pack lying on her chest. She has been found to have some increased troponin level, which she has had in the past as well. The patient also complains of soreness in her legs. She has no pressure, just of this burning sensation. PAST MEDICAL HISTORY: 1. She has renal failure. She is on peritoneal dialysis. 2. History of cardiac catheterization, done 2 years ago with only mild plaque in the coronaries, but no obstructions. MEDICATIONS: 1. Aspirin. 2. She is on antibiotics. 3. Subcutaneous heparin. 4. Nitroglycerin. 5. Protonix. SOCIAL HISTORY: Lives at home. No smoking or alcohol. REVIEW OF SYSTEMS: Constitutional: No significant weight gain or loss. Vision : No changes. Hearing: No changes. Pulmonary: No cough or wheezing. Gastrointestinal: No nausea, vomiting, diarrhea. Skin: No rashes. Neurologic : No unilateral weakness or numbness. Psychiatric: No unusual depression or anxiety. Extremities: She has soreness in her legs. PHYSICAL EXAMINATION: GENERAL: This is a pleasant 77-year-old woman, who says her chest is very sore and the pain is duplicated with palpation. VITAL SIGNS: Blood pressure 117/57, pulse 82 and regular. HEENT: Sclerae nonicteric. Mouth mucous membranes moist. NECK: Supple, no lymphadenopathy. LUNGS: Clear anteriorly and laterally. CARDIOVASCULAR: Normal S1, normal S2. There is a 2-3/6 systolic murmur along the left midsternal border. No diastolic murmur, no S3. ABDOMEN: Soft, nontender. No hepatosplenomegaly. EXTREMITIES: Warm and dry. She is tender in her lower extremities. There is mild edema. LABORATORY AND X-RAY FINDINGS: EKG sinus rhythm, incomplete left bundle branch block, no change from previous EKG. Troponin level is slightly elevated as previously noted on previous admits. The troponin level peak is 1.3 on this admission; last was 1.37. The last time she was here it was also 1.304. ASSESSMENT: 1. Coronary artery disease, mild, based on previous cardiac catheterization. 2. End-stage renal disease. 3. There is some question whether she may have peritonitis. 4. Diabetes. PLAN: 1. Echocardiogram is pending. She does have a murmur, likely aortic valve, apparently previously did have moderate aortic valve stenosis and also mild-to- moderate tricuspid insufficiency. 2. Continue aspirin. 3. Reluctant to give her anti-inflammatories. She still makes a little bit of urine, and we would need to interfere with that with anti-inflammatories. 4. Also, reluctant to give her steroids unless we are also going to give her further medicine for diabetes, as that would likely increase her blood sugar. 5. ?Tramadol versus one dose of Toradol. MTDD
--- NOTE | 2017-09-05 10:42 | PDOC.PN ---
- Subjective Encounter Start Date: 09/05/17 Encounter Start Time: 10:41 Subjective: no more chest discomfort - Objective Resuscitation Status: Resuscitation Status FULL:Full Resuscitation MAR Reviewed: Yes Vital Signs & Weight: Vital Signs (12 hours) Temp Pulse Resp BP Pulse Ox 09/05/17 07:45 97.6 F 82 14 117/57 L 90 L 09/05/17 03:39 98.4 F 79 14 114/61 93 L 09/04/17 23:30 98.3 F 82 18 135/63 98 Weight Weight 168 lb 5 oz I&O: 09/04/17 09/05/17 09/06/17 06:59 06:59 06:59 Intake Total 0 Output Total 0 Balance 0 Result Diagrams: 09/05/17 04:47 09/05/17 06:50 Additional Labs: Accuchecks 09/04/17 23:52 POC Glucose 115 H Radiology Reviewed by me: Yes (RSR, 1st deegree AV block, lateral ST depression) Phys Exam - Physical Examination Neck: no JVD Respiratory: clear to auscultation bilateral Cardiovascular: RRR 2/6 sys murmur Gastrointestinal: no distention, positive bowel sounds Musculoskeletal: no edema, pulses present Dx/Plan (1) Elevated troponin Code(s): R74.8 - ABNORMAL LEVELS OF OTHER SERUM ENZYMES Status: Acute Comment: due to infection dr reyes recommendations noted stop heparin medical mx (2) Anemia Code(s): D64.9 - ANEMIA, UNSPECIFIED Status: Chronic Qualifiers: Anemia type: due to chronic kidney disease Chronic kidney disease stage: on chronic dialysis Qualified Code(s): N18.6 - End stage renal disease; D63.1 - Anemia in chronic kidney disease; D63.1 - Anemia in chronic kidney disease; Z99.2 - Dependence on renal dialysis; Z99.2 - Dependence on renal dialysis; Z99.2 - Dependence on renal dialysis; Z99.2 - Dependence on renal dialysis (3) Aortic stenosis Code(s): Q25.3 - SUPRAVALVULAR AORTIC STENOSIS Status: Chronic (4) ESRD (end stage renal disease) on dialysis Code(s): N18.6 - END STAGE RENAL DISEASE; Z99.2 - DEPENDENCE ON RENAL DIALYSIS Status: Chronic Comment: Now on hemodialysis. (5) HTN (hypertension) Code(s): I10 - ESSENTIAL (PRIMARY) HYPERTENSION Status: Chronic Qualifiers: Hypertension type: essential hypertension Qualified Code(s): I10 - Essential (primary) hypertension Comment: Better controlled. (6) Paroxysmal atrial fibrillation Code(s): I48.0 - PAROXYSMAL ATRIAL FIBRILLATION Status: Chronic - Plan atypical chest pain in patient with chroically elevated troponin -: discussed PD with renal -: cont current meds -: discuss with cardiology * .
[2017-09-05] MEDS ORDERED: Epoetin (ESRD) 20,000 UNITS/ML SC SCH (12:00)
--- NOTE | 2017-09-05 12:13 | CON ---
DATE OF CONSULTATION: 09/05/2017 HISTORY OF PRESENT ILLNESS: Ms. Carr is a 77-year-old white female with known history of ESRD - cu rrently on peritoneal dialysis. I did see this patient yesterday morning for her regular peritoneal dialysis visit. At that time, she was not complaining of any chest pain or shortness of breath or ab dominal pain. About a week ago, I saw her for nausea and vomiting. I felt that she had diabetic gastroparesis. Re glan was started and Zofran. Since that time, she was feeling better. She did tell me that eventual ly she would like to convert back to hemodialysis in about 2 weeks' time. She came in to the ER at [facility] complaining of some chest pain. At that time, it was told that she was taking a big p ill that caused her to have some GI discomfort. The patient was seen at ER at [facility] and was found to have mildly elevated troponin. She was admitted for further observation. Cardiology has evaluated this patient. EKG is not sugge stive of any acute OR. She also had an incidental finding on the abdomen by a CAT scan. Surgery has evaluated her and the feeling is that this is not an acute abdomen. We are being consulted for her maintenance peritoneal dialysis. REVIEW OF SYSTEMS: Occasional chest pain and dysphagia, occasional abdominal pain. Positive for joaquim sea, but no diarrhea. Appetite decreased, energy level is decreased. No headache, no diplopia, no s yncopal episode, no productive cough, no fever or chills. No hematochezia, no melena, no dysuria. HOME MEDICATIONS: Includes amlodipine 5 mg b.i.d., Lipitor 20 mg tab at bedtime, Protonix 40 mg guille y, Renvela 800 mg 1 tab t.i.d. with meals, gabapentin 300 mg p.o. b.i.d., Reglan 10 mg 1/2 tablet bef ore meals t.i.d., p.r.n. Zofran. PAST MEDICAL HISTORY: 1. ESRD secondary to hypertensive/renovascular disease. 2. Status post renal artery stenosis. 3. Aortic valve stenosis. 4. Longstanding hypertension. 5. Status post acute respiratory failure. 6. Type 2 diabetes mellitus. 7. Status post paroxysmal atrial fibrillation. PAST SURGICAL HISTORY: 1. Status post PD catheter placement. 2. Status post AV fistula placement. 3. Status post DRIL. 4. Status post cardiac catheterization. 6. Status post cholecystectomy. 7. Status post cuffed hemodialysis catheter placement. 8. Status post renal arteriogram with renal artery stent placement. 9. Status post hysterectomy. 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 Education, high school. No history of smoking, no alcohol intake, no IV drug abuse. Status post blo od transfusion. ALLERGIES: None. TRAUMA: None. IMMUNIZATIONS: Up to date. HOSPITALIZATIONS: Please see past medical history. FAMILY HISTORY: No family history of ESRD. PHYSICAL EXAMINATION: VITAL SIGNS: Blood pressure is noted at 117/57, heart rate 82, respiratory rate 14, temperature 97.6 , pulse ox 90% to 93%. GENERAL: Awake, alert, comfortable, not in distress, fragile looking. SKIN: Adequate turgor. HEENT: She has slightly pale conjunctivae, anicteric sclerae. NECK: No neck mass, no carotid bruits, no JVD. CHEST: No deformities. LUNGS: Decreased breath sounds. HEART: Normal sinus rhythm. No murmur, no gallops or rubs. ABDOMEN: Globular, soft, nontender, no masses. Please note, she has a PD catheter on her abdomen. EXTREMITIES: No edema, no deformities. She has a left upper extremity AV fistula, positive for brui t. LABORATORY DATA: Of 09/05/2017, white count 18.6, hemoglobin 9.9. Sodium 132, potassium 4.9, chlori de 95, carbon dioxide 24, BUN 55, creatinine 8.66, glucose 62, calcium 8.6. ASSESSMENT AND PLAN: 1. End-stage renal disease, stable. We will continue current continuous cycling peritoneal dialysis regimen. Review of the last Kt/V suggests she is adequately dialyzed with the current dialysis smiley men. No changes to be made tonight. I did discuss the case with the dialysis nurse. 2. Chest pain - Cardiology is following the patient. 3. Abdominal free air - most likely related to her peritoneal dialysis. Surgery has evaluated this patient. 4. Anemia - we will resume Epogen 7500 units subcu every week.
[2017-09-05] MEDS: Mag-Al 1200 mg/1200 mg/30 ML UDCUP PO PRN (12:16)
[2017-09-05] MEDS: Ondansetron HCl/PF 4 MG/2 ML Vial IVP PRN ×2 (12:19→22:26)
--- NOTE | 2017-09-05 15:46 | PDOC.EVN ---
Event Note - Event Note Event Note: ECHO revealc critical aortic stenosis. discuss with Cardiology
--- NOTE | 2017-09-05 16:28 | PRG ---
DATE OF SERVICE: 09/05/2017 SUBJECTIVE: Leslie Carr is a 77-year-old female is on the telemetry unit. She has aortic stenosis. She dialyzes using a peritoneal dialysis catheter, placed at [facility] . I had placed her left arm fistula, transposition basilic vein type in the past, she had required a drill procedure for that. The patient overall is doing well. Her main complaint is her chest, whic h seems to be noncardiac pain. She states this occurred after swallowing large pill. She states hao t they have plans to convert her to hemodialysis using her left upper arm basilic vein transposition fistula on 09/21/2017. OBJECTIVE: LUNGS: Clear to auscultation. ABDOMEN: Soft, bowel sounds present. ASSESSMENT AND PLAN: Chest pain under evaluation by medical service. Peritoneal dialysis status, pl anning to convert to hemodialysis in the future. I will see the patient as needed this hospitalizati on. Please call if necessary. I will be glad to see her as an outpatient if she desires removal of her peritoneal dialysis catheter in the future.
[2017-09-05] MEDS: Insulin Regular 300 UNITS/3 ML VIAL SC PRN (21:00)
[2017-09-05] MEDS: Acetaminophen 325 MG TAB PO PRN (21:00)
[2017-09-06] MEDS: Metoclopramide HCl 10 MG/2 ML VIAL IVP PRN ×2 (02:14→09:43)
[2017-09-06 05:53] LABS: #Basophils 0.1 thou/uL (0.0-0.2); #Eosinphils 0.2 thou/uL (0.0-0.7); #Lymphocytes 1.5 thou/uL (1.20-3.40); #Neutrophils 13.4 thou/uL (1.40-6.50); %Basophils 0.6 % (0.0-1.0); %Eosinophils 1.1 % (0.0-10.0); %Lymphocytes 9.3 % (21.0-51.0); %Neutrophils 83.1 % (42.0-75.0); Hemoglobin 9.8 g/dL (12.0-16.0); Mean Corpuscular HGB CONC 31.5 g/dL (32.0-36.0); Mean Corpuscular Hemoglobin 33.8 pg (27.0-31.0); Mean Platelet Volume 8.2 fL (7.4-10.4); Platelet Count 289 thou/uL (130-400); RBC Distribution Width 12.7 % (11.5-14.5); Red Blood Cell (RBC) Count 2.91 mill/uL (4.20-5.40); White Blood Cell (WBC) Count 16.1 thou/uL (4.8-10.8)
[2017-09-06 06:07] LABS: Anion Gap 21 mmol/L (10-20); BUN (Urea Nitrogen) 49 mg/dL (9.8-20.1); Calc. Creatinine Clearance 7 mL/min (70-130); Calcium 8.3 mg/dL (7.8-10.44); Carbon Dioxide 22 mmol/L (23-31); Cardiac Risk 2.3 (Less than 4.5); Chloride 95 mmol/L (98-107); Cholesterol 115 mg/dl (< 200 Desired); Estimated GFR-MDRD 5; Glucose 223 mg/dL (83-110); HDL Cholesterol 49 mg/dL (>60 Neg Risk); LDL Cholesterol, Calculated 42 mg/dL; Potassium 3.9 mmol/L (3.5-5.1); Sodium 134 mmol/L (136-145); Triglycerides 121 mg/dL (Less than 150)
[2017-09-06] MEDS: Cefepime 1 GM in Syringe 10 ML SLOW IVP SCH (06:16)
[2017-09-06] MEDS: Acetaminophen 325 MG TAB PO PRN ×2 (06:16→18:37)
[2017-09-06] MEDS: Nitroglycerin 2% Ointment 1 INCH/1 GM Packet TOP SCH (06:17)
[2017-09-06] MEDS ORDERED: Eucerin (Mineral Oil/Petrolatum,White) 30 gm Jar TOP PRN (07:28)
[2017-09-06] MEDS ORDERED: Loratadine 10 MG TAB PO PRN (07:28)
[2017-09-06] MEDS ORDERED: Artificial Tears 18 DROP/0.9 ML EA EYE PRN (07:28)
[2017-09-06] MEDS ORDERED: Milk Of Magnesia 30 ML UDCUP PO PRN (07:28)
[2017-09-06] MEDS ORDERED: Sodium Chloride 0.65% Nasal 44 ML BOT EA NARE PRN (07:28)
[2017-09-06] MEDS ORDERED: Diabetic Tussin 200 MG/10 ML UDCUP PO PRN (07:28)
[2017-09-06] MEDS ORDERED: Sodium Chloride 0.9% 10 ML ONE (07:56)
[2017-09-06] MEDS ORDERED: Famotidine 20 MG TAB PO SCH (09:00)
[2017-09-06] MEDS ORDERED: Amlodipine 5 MG TAB PO SCH (09:00)
[2017-09-06] MEDS: Docusate 100 MG CAP PO SCH ×2 (09:35→20:08)
[2017-09-06] MEDS: Sevelamer Carbonate 800 MG TAB PO SCH ×3 (09:35→17:13)
[2017-09-06] MEDS: Pantoprazole 40 MG VIAL IVP SCH (09:41)
[2017-09-06] MEDS: Aspirin 325 MG TAB PO SCH (09:46)
[2017-09-06] MEDS ORDERED: Metoclopramide HCl 10 MG/2 ML VIAL IVP PRN (09:47)
[2017-09-06] MEDS: Folic Acid/Vit B Comp W-C PO SCH (09:47)
[2017-09-06] MEDS: Heparin 5,000 UNITS/ML VIAL SC SCH ×2 (09:49→20:07)
--- NOTE | 2017-09-06 10:14 | PDOC.PN ---
- Subjective Encounter Start Date: 09/06/17 Encounter Start Time: 08:30 -: old records requested/rev c/o nausea and vomiting, diarrhoea Patient seen and examined. No overnight events - Objective Resuscitation Status: Resuscitation Status FULL:Full Resuscitation MAR Reviewed: Yes Vital Signs & Weight: Vital Signs (12 hours) Temp Pulse Resp BP Pulse Ox 09/06/17 08:01 98.4 F 90 16 99/44 L 92 L 09/06/17 06:25 89 16 121/51 L 96 09/06/17 03:09 92 L Weight Admit Weight 168 lb 5 oz Weight 168 lb 5 oz I&O: 09/05/17 09/06/17 09/07/17 06:59 06:59 06:59 Intake Total 0 780 Output Total 0 0 Balance 0 780 Result Diagrams: 09/06/17 05:15 09/06/17 05:15 Additional Labs: Accuchecks 09/06/17 09/05/17 09/05/17 06:27 20:03 16:08 POC Glucose 231 H 295 H 182 H 09/05/17 10:42 POC Glucose 58 L* Phys Exam - Physical Examination Constitutional: NAD HEENT: PERRLA, moist MMs, sclera anicteric Neck: no JVD, supple Respiratory: no wheezing, no rales, no rhonchi Cardiovascular: RRR, no significant murmur, no rub Gastrointestinal: soft, non-tender, no distention, positive bowel sounds PD catheter+ Musculoskeletal: no edema, pulses present Neurological: non-focal, normal sensation Lymphatic: no nodes Psychiatric: normal affect Skin: no rash, normal turgor Dx/Plan (1) Critical aortic valve stenosis Code(s): I35.0 - NONRHEUMATIC AORTIC (VALVE) STENOSIS Status: Acute (2) Leucocytosis Code(s): D72.829 - ELEVATED WHITE BLOOD CELL COUNT, UNSPECIFIED Status: Acute (3) Non-ST elevation myocardial infarction (NSTEMI), type 2 Code(s): I21.A1 - MYOCARDIAL INFARCTION TYPE 2 Status: Acute (4) Anemia of renal disease Code(s): D63.1 - ANEMIA IN CHRONIC KIDNEY DISEASE Status: Chronic (5) ESRD on peritoneal dialysis Code(s): N18.6 - END STAGE RENAL DISEASE; Z99.2 - DEPENDENCE ON RENAL DIALYSIS Status: Chronic (6) HTN (hypertension) Code(s): I10 - ESSENTIAL (PRIMARY) HYPERTENSION Status: Chronic Qualifiers: Hypertension type: essential hypertension Qualified Code(s): I10 - Essential (primary) hypertension Comment: Better controlled. (7) Paroxysmal atrial fibrillation Code(s): I48.0 - PAROXYSMAL ATRIAL FIBRILLATION Status: Chronic (8) Physical deconditioning Code(s): R53.81 - OTHER MALAISE Status: Chronic (9) Secondary hyperparathyroidism of renal origin Code(s): N25.81 - SECONDARY HYPERPARATHYROIDISM OF RENAL ORIGIN Status: Chronic (10) Type 2 diabetes mellitus Status: Chronic Qualifiers: Diabetes mellitus complication status: with kidney complications Diabetes mellitus complication detail: with chronic kidney disease Chronic kidney disease stage: on chronic dialysis - Plan cont current plan of care, plan discussed w/ family, continue antibiotics * continue symptomatic treatment with zofran and reglan * medication reviewed as below * symptomatic treatment * dr lange to initiat HD rather than PD as per pt and family request * she will need TAVR after discharge. * stool study for infection Review of Systems - Review of Systems ENT: negative: Ear Pain, Ear Discharge, Nose Pain, Nose Discharge, Nose Congestion, Mouth Pain, Mouth Swelling, Throat Pain, Throat Swelling, Other Respiratory: negative: Cough, Dry, Shortness of Breath, Hemoptysis, SOB with Excertion, Pleuritic Pain, Sputum, Wheezing Cardiovascular: negative: chest pain, palpitations, orthopnea, paroxysmal nocturnal dyspnea, edema, light headedness, other Gastrointestinal: Nausea, Vomiting, Diarrhea. negative: Abdominal Pain, Constipation, Melena, Hematochezia, Other Genitourinary: negative: Dysuria, Frequency, Incontinence, Hematuria, Retention , Other Musculoskeletal: negative: Neck Pain, Shoulder Pain, Arm Pain, Back Pain, Hand Pain, Leg Pain, Foot Pain, Other Skin: negative: Rash, Lesions, Mick, Bruising, Other - Medications/Allergies Allergies/Adverse Reactions: Allergies Allergy/AdvReac Type Severity Reaction Status Date / Time No Known Drug Allergies Allergy Verified 10/04/15 01:31 Medications: Current Medications Acetaminophen (Tylenol) 650 mg PO Q4H PRN PRN Reason: Headache/Fever or Pain Last Admin: 09/06/17 06:16 Dose: 650 mg Hydrocodone Bitart/Acetaminophen ([place] 5/325) 1 tab PO Q4H PRN PRN Reason: Moderate Pain (4-6) Al Hydroxide/Mg Hydroxide (Maalox) 30 ml PO Q4H PRN PRN Reason: Heartburn or Indigestion Last Admin: 09/05/17 12:16 Dose: 30 ml Artificial Tears (Tears Naturale) 0 drop EA EYE PRN PRN PRN Reason: Dry Eyes Aspirin (Aspirin Chewable) 81 mg PO DAILY [facility] Atorvastatin Calcium (Lipitor) 20 mg PO HS [facility] Calcium Carbonate (Tums) 1,000 mg PO Q4H PRN PRN Reason: Heartburn or Indigestion Dextrose/Water (Dextrose 50%) 25 gm SLOW IVP PRN PRN PRN Reason: Hypoglycemia Docusate Sodium (Colace) 100 mg PO BID [facility] Last Admin: 09/06/17 09:35 Dose: Not Given Epoetin Timur (Procrit) 7,500 units SC Q7D@1200 [facility] Last Admin: 09/05/17 13:03 Dose: 7,500 units Glucagon (Glucagon) 1 mg IM PRN PRN PRN Reason: Hypoglycemia Guaifenesin (Robitussin Sf) 200 mg PO Q4H PRN PRN Reason: Cough Heparin Sodium (Porcine) (Heparin) 5,000 units SC BID [facility] Last Admin: 09/06/17 09:49 Dose: Not Given Dextrose/Water (D5w) 1,000 mls @ 0 mls/hr IV .Q0M PRN; As Directed PRN Reason: Hypoglycemia Cefepime HCl 1 gm/ Syringe 10 mls @ 120 mls/hr SLOW IVP Q24HR@0400 [facility] Last Admin: 09/06/17 06:16 Dose: 10 mls Insulin Human Regular (Humulin R) 0 units SC .MILD SLIDING SCALE PRN PRN Reason: Mild Correctional Scale Insulin Human Regular (Humulin R) 0 units SC .BEDTIME SLIDING SC PRN PRN Reason: Bedtime Correctional Scale Last Admin: 09/05/17 21:00 Dose: 3 unit Labetalol HCl (Normodyne) 10 mg SLOW IVP Q4H PRN PRN Reason: Systolic BP > 180 Loperamide HCl (Imodium) 2 mg PO PRN PRN PRN Reason: Diarrhea/Loose Stools Loratadine (Claritin) 10 mg PO DAILYPRN PRN PRN Reason: Sinus Symptoms Magnesium Hydroxide (Milk Of Magnesium) 30 ml PO DAILYPRN PRN PRN Reason: Constipation Metoclopramide HCl (Reglan) 5 mg IVP Q6H PRN PRN Reason: Nausea/Vomiting Mineral Oil/White Petrolatum (Eucerin Cream) 0 gm TOP BIDPRN PRN PRN Reason: Dry Skin Miscellaneous Medication (Pharmacy To Dose) 0 each IVPB PRN PRN PRN Reason: RENAL Pharmacy to dose Nitroglycerin (Nitrostat) 0.4 mg PO Q5MIN PRN PRN Reason: Chest Pain Ondansetron HCl (Zofran Odt) 4 mg PO Q6H PRN PRN Reason: Nausea/Vomiting Ondansetron HCl (Zofran) 4 mg IVP Q6H PRN PRN Reason: Nausea/Vomiting Last Admin: 09/05/17 22:26 Dose: 4 mg Pantoprazole Sodium (Protonix) 40 mg IVP DAILY [facility] Last Admin: 09/06/17 09:41 Dose: 40 mg Senna (Senokot) 2 tab PO HSPRN PRN PRN Reason: Constipation Sertraline HCl (Zoloft) 12.5 mg PO DAILY [facility] Last Admin: 09/06/17 09:40 Dose: 12.5 mg Sevelamer Carbonate (Renvela) 800 mg PO TID[facility] Last Admin: 09/06/17 09:35 Dose: Not Given Sodium Chloride ([place] Nasal [place] 0.65%) 0 ml EA NARE QIDPRN PRN PRN Reason: Nasal Congestion Temazepam (Restoril) 15 mg PO HSPRN PRN PRN Reason: Insomnia Vitamin B Complex/Vit C/Folic Acid (Nephro-Christiano Tablet) 1 tab PO DAILY [facility] Last Admin: 09/06/17 09:47 Dose: Not Given
--- NOTE | 2017-09-06 11:01 | PRG ---
DATE OF SERVICE: 09/06/2017 SERVICE: Renal Medicine. SUBJECTIVE: Ms. Carr is a 77-year-old white female, being followed by the Renal Service for her ma intenance peritoneal dialysis. She voices no new complaints today except for some diarrhea and nause a. Please note, her nausea has been chronic in nature. She is currently tolerating the peritoneal d ialysis. We are using 1.5% PD solution to minimize ultrafiltration due to her decreased p.o. intake. OBJECTIVE: VITAL SIGNS: Blood pressure is ranging from 99/44-121/51, heart rate 90, respiratory rate 16, temper ature 98.4, pulse ox 92%. GENERAL EXAM: Noted to be awake, alert, comfortable, not in distress. SKIN: Adequate turgor. HEENT: Slightly pale conjunctivae and anicteric sclerae. NECK: No neck mass, no carotid bruits, no JVD. CHEST: No deformities. LUNGS: Clear breath sounds. No wheezing, no crackles. HEART: Normal sinus rhythm. No murmur, no gallops, no rubs. ABDOMEN: Globular, soft, nontender, no masses. Positive for PD catheter. EXTREMITIES: No edema. Medications of 09/06/2017 reviewed. LABORATORY DATA: Laboratories of 09/06/2017, white count 16.1, hemoglobin 9.8, sodium 134, potassium 3.9, chloride 95, carbon dioxide 22, BUN 49, creatinine 8.17. ASSESSMENT AND PLAN: 1. End-stage renal disease, stable. We will continue current CCPD regimen. Due to the diarrhea and decreased p.o. intake, we are using 1.5% PD solution. 2. Anemia, currently on Procrit 7500 units subcutaneous every day. 3. Diarrhea - we will be ruling out for Clostridium difficile colitis with this patient. P.r.n. Lom otil. Continue supportive care. We will check basic metabolic panel and CBC in a.m.
[2017-09-06] MEDS: Insulin Regular 300 UNITS/3 ML VIAL SC PRN ×2 (12:26→20:22)
[2017-09-06] MEDS ORDERED: Sodium Chloride 0.9% 500 ML IV SCH ×2 (13:00→16:30)
[2017-09-06 14:03] LABS: #Basophils 0.1 thou/uL (0.0-0.2); #Eosinphils 0.1 thou/uL (0.0-0.7); #Lymphocytes 1.7 thou/uL (1.20-3.40); #Neutrophils 16.7 thou/uL (1.40-6.50); %Basophils 0.4 % (0.0-1.0); %Eosinophils 0.6 % (0.0-10.0); %Lymphocytes 8.6 % (21.0-51.0); %Monocytes 5.2 % (0.0-10.0); %Neutrophils 85.1 % (42.0-75.0); Hemoglobin 9.5 g/dL (12.0-16.0); Mean Corpuscular HGB CONC 31.4 g/dL (32.0-36.0); Mean Corpuscular Hemoglobin 33.7 pg (27.0-31.0); Mean Platelet Volume 8.3 fL (7.4-10.4); Platelet Count 289 thou/uL (130-400); RBC Distribution Width 12.7 % (11.5-14.5); Red Blood Cell (RBC) Count 2.83 mill/uL (4.20-5.40); White Blood Cell (WBC) Count 19.6 thou/uL (4.8-10.8)
[2017-09-06 14:44] LABS: Lactic Acid 2.4 mmol/L (0.5-2.2)
[2017-09-06] MEDS: Loperamide HCl 2 MG CAP PO PRN (18:37)
[2017-09-06] MEDS: Ondansetron HCl/PF 4 MG/2 ML Vial IVP PRN (19:28)
[2017-09-06] MEDS: HYDROcodone/Acetaminophen 5/325 mg Tablet PO PRN (19:32)
[2017-09-06] MEDS: Mag-Al 1200 mg/1200 mg/30 ML UDCUP PO PRN (19:45)
[2017-09-06] MEDS: Atorvastatin Calcium 20 MG TAB PO SCH (20:07)
[2017-09-06] MEDS: Calcium Carbonate 500 MG ChewTAB PO PRN (20:22)
[2017-09-06] MEDS: Temazepam 15 MG CAP PO PRN (20:51)
[2017-09-07] MEDS: HYDROcodone/Acetaminophen 5/325 mg Tablet PO PRN ×2 (01:33→06:34)
[2017-09-07] MEDS: Cefepime 1 GM in Syringe 10 ML SLOW IVP SCH (04:00)
[2017-09-07 04:11] LABS: #Eosinphils 0.4 thou/uL (0.0-0.7); #Lymphocytes 1.5 thou/uL (1.20-3.40); #Monocytes 1.2 thou/uL (0.11-0.59); #Neutrophils 13.1 thou/uL (1.40-6.50); %Basophils 0.3 % (0.0-1.0); %Eosinophils 2.2 % (0.0-10.0); %Lymphocytes 9.3 % (21.0-51.0); %Monocytes 7.4 % (0.0-10.0); %Neutrophils 80.8 % (42.0-75.0); Hemoglobin 9.6 g/dL (12.0-16.0); Mean Corpuscular HGB CONC 32.2 g/dL (32.0-36.0); Mean Corpuscular Hemoglobin 34.3 pg (27.0-31.0); Mean Platelet Volume 8.4 fL (7.4-10.4); Platelet Count 286 thou/uL (130-400); RBC Distribution Width 12.7 % (11.5-14.5); Red Blood Cell (RBC) Count 2.78 mill/uL (4.20-5.40); White Blood Cell (WBC) Count 16.2 thou/uL (4.8-10.8)
[2017-09-07] MEDS: Mag-Al 1200 mg/1200 mg/30 ML UDCUP PO PRN (04:21)
[2017-09-07 04:23] LABS: Albumin 2.2 g/dL (3.4-4.8); Anion Gap 17 mmol/L (10-20); BUN (Urea Nitrogen) 49 mg/dL (9.8-20.1); BUN/Creatinine Ratio 5.85; Calc. Creatinine Clearance 7 mL/min (70-130); Calcium 8.2 mg/dL (7.8-10.44); Carbon Dioxide 23 mmol/L (23-31); Chloride 96 mmol/L (98-107); Estimated GFR-MDRD 5; Glucose 184 mg/dL (83-110); Phosphorus 7.2 mg/dL (2.3-4.7); Potassium 3.9 mmol/L (3.5-5.1); Sodium 132 mmol/L (136-145)
[2017-09-07] MEDS: Docusate 100 MG CAP PO SCH ×2 (09:20→20:50)
[2017-09-07] MEDS: Sevelamer Carbonate 800 MG TAB PO SCH ×3 (09:21→16:48)
[2017-09-07] MEDS: Pantoprazole 40 MG VIAL IVP SCH (09:22)
[2017-09-07] MEDS: Folic Acid/Vit B Comp W-C PO SCH (09:22)
--- NOTE | 2017-09-07 10:01 | PRG ---
DATE OF SERVICE: 09/07/2017. SUBJECTIVE: Ms. Carr is a 77-year-old white female with ESRD and currently on CCPD. The patient d eclined a full peritoneal dialysis treatment last night. We did give her a 2 liter peritoneal dialys is infusion. This morning she tells me she is feeling better. The patient is contemplating whether to continue peritoneal dialysis or hemodialysis. She prefers to wait for another 2 weeks. Her famil y is concerned and wants to proceed with the hemodialysis. I will give another trial of peritoneal d ialysis later tonight. A GI consult will be done once Cardiology clears this patient. No other complaints. The patient feels tired. PHYSICAL EXAMINATION: VITAL SIGNS: Blood pressure is 108/48, heart rate 103, respiratory rate 18, temperature 97.6, pulse ox 98%. GENERAL: Awake, supine, comfortable, lethargic, not in distress. SKIN: Adequate turgor. HEENT: Slightly pale conjunctivae, anicteric sclerae. NECK: No neck mass, no carotid bruits, no JVD. CHEST: No deformities. LUNGS: Clear breath sounds. No wheezing, no crackles. HEART: Normal sinus rhythm. No murmur, no gallops, no rubs. ABDOMEN: Globular, soft, nontender. No masses. Positive for PD catheter. EXTREMITIES: No edema, no deformities. LABORATORY: 09/07/2017 - White count 16.2, hemoglobin 9.6, sodium 132, potassium 3.9, chloride 96, c arbon dioxide 23, BUN 49, creatinine 8.37, glucose 184, calcium 8.2, phosphorus 7.2. ASSESSMENT AND PLAN: 1. End-stage renal disease - stable. The patient is declining peritoneal dialysis last night, but w e did give her a 2 liter infusion overnight. We will resume back her CCPD regimen tonight. If she s till has a problem with this, we may need to convert her to hemodialysis. I did discuss the case at length with the patient and her family as well as with the Hospitalist. 2. Anemia on weekly Epogen - p.r.n. blood transfusion.
[2017-09-07] MEDS ORDERED: Communication Order-Pharmacy FS SCH (10:30)
[2017-09-07] MEDS ORDERED: Lidocaine 1% (PF) 30 ML VIAL ONE (10:31)
--- NOTE | 2017-09-07 10:42 | PDOC.PN ---
- Subjective Encounter Start Date: 09/07/17 Encounter Start Time: 09:00 Patient seen and examined. No new complaints. No overnight events no diarrhoea,no vomiting - Objective Resuscitation Status: Resuscitation Status FULL:Full Resuscitation MAR Reviewed: Yes Vital Signs & Weight: Vital Signs (12 hours) Temp Pulse Resp BP Pulse Ox 09/07/17 08:00 97.6 F 103 H 18 98 09/07/17 07:40 97.6 F 103 H 18 108/48 L 99 09/07/17 04:22 97.9 F 79 17 111/26 L 94 L 09/07/17 00:22 99.2 F 88 16 102/31 L 97 Weight Admit Weight 168 lb 5 oz Weight 169 lb 14.4 oz I&O: 09/06/17 09/07/17 09/08/17 06:59 06:59 06:59 Intake Total 780 1780 Output Total 0 Balance 780 1780 Result Diagrams: 09/07/17 03:46 09/07/17 03:46 Additional Labs: Accuchecks 09/07/17 09/06/17 09/06/17 04:59 20:18 16:59 POC Glucose 183 H 231 H 132 H 09/06/17 10:42 POC Glucose 213 H EKG Reviewed by me: Yes (transient afib) Phys Exam - Physical Examination Constitutional: NAD HEENT: PERRLA, moist MMs, sclera anicteric Neck: no JVD, supple Respiratory: no wheezing, no rales, no rhonchi Cardiovascular: RRR, no rub SM+ Gastrointestinal: soft, non-tender, no distention, positive bowel sounds PD catheter+ Musculoskeletal: no edema, pulses present Neurological: non-focal, normal sensation Lymphatic: no nodes Psychiatric: normal affect, A&O x 3 Skin: no rash, normal turgor Dx/Plan (1) Critical aortic valve stenosis Code(s): I35.0 - NONRHEUMATIC AORTIC (VALVE) STENOSIS Status: Acute (2) Leucocytosis Code(s): D72.829 - ELEVATED WHITE BLOOD CELL COUNT, UNSPECIFIED Status: Acute (3) Non-ST elevation myocardial infarction (NSTEMI), type 2 Code(s): I21.A1 - MYOCARDIAL INFARCTION TYPE 2 Status: Acute (4) Anemia of renal disease Code(s): D63.1 - ANEMIA IN CHRONIC KIDNEY DISEASE Status: Chronic (5) ESRD on peritoneal dialysis Code(s): N18.6 - END STAGE RENAL DISEASE; Z99.2 - DEPENDENCE ON RENAL DIALYSIS Status: Chronic (6) HTN (hypertension) Code(s): I10 - ESSENTIAL (PRIMARY) HYPERTENSION Status: Chronic Qualifiers: Hypertension type: essential hypertension Qualified Code(s): I10 - Essential (primary) hypertension Comment: Better controlled. (7) Paroxysmal atrial fibrillation Code(s): I48.0 - PAROXYSMAL ATRIAL FIBRILLATION Status: Chronic (8) Physical deconditioning Code(s): R53.81 - OTHER MALAISE Status: Chronic (9) Secondary hyperparathyroidism of renal origin Code(s): N25.81 - SECONDARY HYPERPARATHYROIDISM OF RENAL ORIGIN Status: Chronic (10) Type 2 diabetes mellitus Status: Chronic Qualifiers: Diabetes mellitus complication status: with kidney complications Diabetes mellitus complication detail: with chronic kidney disease Chronic kidney disease stage: on chronic dialysis - Plan cont current plan of care, plan discussed w/ family, 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 * SNU evaluation Review of Systems - Review of Systems Eyes: negative: Pain, Vision Change, Conjunctivae Inflammation, Eyelid Inflammation, Redness, Other ENT: negative: Ear Pain, Ear Discharge, Nose Pain, Nose Discharge, Nose Congestion, Mouth Pain, Mouth Swelling, Throat Pain, Throat Swelling, Other Respiratory: negative: Cough, Dry, Shortness of Breath, Hemoptysis, SOB with Excertion, Pleuritic Pain, Sputum, Wheezing Cardiovascular: negative: chest pain, palpitations, orthopnea, paroxysmal nocturnal dyspnea, edema, light headedness, other Gastrointestinal: negative: Nausea, Vomiting, Abdominal Pain, Diarrhea, Constipation, Melena, Hematochezia, Other Genitourinary: negative: Dysuria, Frequency, Incontinence, Hematuria, Retention , Other Musculoskeletal: negative: Neck Pain, Shoulder Pain, Arm Pain, Back Pain, Hand Pain, Leg Pain, Foot Pain, Other Skin: negative: Rash, Lesions, Mick, Bruising, Other - Medications/Allergies Allergies/Adverse Reactions: Allergies Allergy/AdvReac Type Severity Reaction Status Date / Time No Known Drug Allergies Allergy Verified 10/04/15 01:31 Medications: Current Medications Acetaminophen (Tylenol) 650 mg PO Q4H PRN PRN Reason: Headache/Fever or Pain Last Admin: 09/06/17 18:37 Dose: 650 mg Hydrocodone Bitart/Acetaminophen ([place] 5/325) 1 tab PO Q4H PRN PRN Reason: Moderate Pain (4-6) Last Admin: 09/07/17 06:34 Dose: 1 tab Al Hydroxide/Mg Hydroxide (Maalox) 30 ml PO Q4H PRN PRN Reason: Heartburn or Indigestion Last Admin: 09/07/17 04:21 Dose: 30 ml Artificial Tears (Tears Naturale) 0 drop EA EYE PRN PRN PRN Reason: Dry Eyes Aspirin (Aspirin Chewable) 81 mg PO DAILY [facility] Last Admin: 09/07/17 09:22 Dose: 81 mg Atorvastatin Calcium (Lipitor) 20 mg PO HS [facility] Last Admin: 09/06/17 20:07 Dose: 20 mg Calcium Carbonate (Tums) 1,000 mg PO Q4H PRN PRN Reason: Heartburn or Indigestion Last Admin: 09/06/17 20:22 Dose: 1,000 mg Dextrose/Water (Dextrose 50%) 25 gm SLOW IVP PRN PRN PRN Reason: Hypoglycemia Docusate Sodium (Colace) 100 mg PO BID [facility] Last Admin: 09/07/17 09:20 Dose: Not Given Epoetin Timur (Procrit) 7,500 units SC Q7D@1200 [facility] Last Admin: 09/05/17 13:03 Dose: 7,500 units Glucagon (Glucagon) 1 mg IM PRN PRN PRN Reason: Hypoglycemia Guaifenesin (Robitussin Sf) 200 mg PO Q4H PRN PRN Reason: Cough Heparin Sodium (Porcine) (Heparin) 5,000 units SC BID [facility] Last Admin: 09/06/17 20:07 Dose: 5,000 units Dextrose/Water (D5w) 1,000 mls @ 0 mls/hr IV .Q0M PRN; As Directed PRN Reason: Hypoglycemia Cefepime HCl 1 gm/ Syringe 10 mls @ 120 mls/hr SLOW IVP Q24HR@0400 [facility] Last Admin: 09/07/17 04:00 Dose: 10 mls Insulin Human Regular (Humulin R) 0 units SC .MILD SLIDING SCALE PRN PRN Reason: Mild Correctional Scale Last Admin: 09/06/17 12:26 Dose: 3 unit Insulin Human Regular (Humulin R) 0 units SC .BEDTIME SLIDING SC PRN PRN Reason: Bedtime Correctional Scale Last Admin: 09/06/17 20:22 Dose: 2 unit Labetalol HCl (Normodyne) 10 mg SLOW IVP Q4H PRN PRN Reason: Systolic BP > 180 Loperamide HCl (Imodium) 2 mg PO PRN PRN PRN Reason: Diarrhea/Loose Stools Last Admin: 09/06/17 18:37 Dose: 2 mg Loratadine (Claritin) 10 mg PO DAILYPRN PRN PRN Reason: Sinus Symptoms Magnesium Hydroxide (Milk Of Magnesium) 30 ml PO DAILYPRN PRN PRN Reason: Constipation Metoclopramide HCl (Reglan) 5 mg IVP Q6H PRN PRN Reason: Nausea/Vomiting Mineral Oil/White Petrolatum (Eucerin Cream) 0 gm TOP BIDPRN PRN PRN Reason: Dry Skin Miscellaneous Information (Communication Order-Pharmacy) 0 each FS ONE [facility] Stop: 09/07/17 21:00 Nitroglycerin (Nitrostat) 0.4 mg PO Q5MIN PRN PRN Reason: Chest Pain Ondansetron HCl (Zofran Odt) 4 mg PO Q6H PRN PRN Reason: Nausea/Vomiting Last Admin: 09/07/17 04:21 Dose: 4 mg Ondansetron HCl (Zofran) 4 mg IVP Q6H PRN PRN Reason: Nausea/Vomiting Last Admin: 09/06/17 19:28 Dose: 4 mg Pantoprazole Sodium (Protonix) 40 mg IVP DAILY [facility] Last Admin: 09/07/17 09:22 Dose: 40 mg Senna (Senokot) 2 tab PO HSPRN PRN PRN Reason: Constipation Sertraline HCl (Zoloft) 12.5 mg PO DAILY [facility] Last Admin: 09/07/17 09:21 Dose: 12.5 mg Sevelamer Carbonate (Renvela) 800 mg PO TID[facility] Last Admin: 09/07/17 09:21 Dose: Not Given Sodium Chloride ([place] Nasal [place] 0.65%) 0 ml EA NARE QIDPRN PRN PRN Reason: Nasal Congestion Sodium Chloride (Flush - Normal Saline) 10 ml IVF Q12HR [facility] Sodium Chloride (Flush - Normal Saline) 10 ml IVF PRN PRN PRN Reason: Saline Flush Temazepam (Restoril) 15 mg PO HSPRN PRN PRN Reason: Insomnia Last Admin: 09/06/17 20:51 Dose: 15 mg Vitamin B Complex/Vit C/Folic Acid (Nephro-Christiano Tablet) 1 tab PO DAILY [facility] Last Admin: 09/07/17 09:22 Dose: 1 tab
[2017-09-07] MEDS: Heparin 5,000 UNITS/ML VIAL SC SCH ×2 (11:29→20:49)
[2017-09-07] MEDS ORDERED: Acetaminophen/Codeine 30-300mg Tablet PO PRN ×2 (12:50)
[2017-09-07] MEDS ORDERED: Nitroglycerin 0.4 MG TAB (25 Tab Bottle) SL PRN (12:50)
[2017-09-07] MEDS ORDERED: Sodium Chloride 0.9% 200 ML IV SCH (12:50)
[2017-09-07] MEDS ORDERED: metroNIDAZOLE 500 MG TAB PO SCH (14:15)
--- NOTE | 2017-09-07 14:22 | CON ---
DATE OF CONSULTATION: 09/07/2017 SERVICE: Pulmonary Medicine. REASON FOR CONSULTATION: [facility] patient. HISTORY OF PRESENT ILLNESS: The patient is a 77-year-old white female with past medical history significant for type 2 diabetes mellitus. During this hospital stay, she had some chest discomfort that presented itself immediately after she swallowed a pill. On a CT scan that was done of the belly, there was incidentally discovered free air in the belly associated with peritoneal dialysis catheter placement. Other way, she was tucked in the hospital. She was subsequently brought to the [facility] because of marginal blood pressures despite the fact that she had good mentation, and no signs of end organ damage. The chest pain was being worked up and she ended up having a cardiac catheterization and echocardiogram. This demonstrated 3-vessel disease and aortic stenosis. As such, she is being referred for urgent revascularization procedure and possible aortic valve replacement. She currently is the [facility]. She just had a cardiac catheterization performed and has no specific complaints with that. She has no leg discomfort, fevers, chills, cough, nausea, vomiting or diarrhea. PAST MEDICAL HISTORY: 1. End-stage renal disease, on peritoneal dialysis. 2. Type 2 diabetes mellitus. 3. Hypertension. 4. Dyslipidemia. 5. Coronary artery disease, 3-vessel, severe. 6. Aortic stenosis, severe. 7. Renal artery stenosis, status post history of stent placement with in-stent restenosis. 8. Paroxysmal atrial fibrillation. PAST SURGICAL HISTORY: 1. Dialysis access. 2. Cardiac catheterization. 3. Cholecystectomy. 4. Hysterectomy. 5. Renal artery stent placement. 6. History of EGD. ALLERGIES: No known drug allergies. MEDICATIONS: List of her inpatient medications were reviewed, but no specific updates were made at this time. FAMILY HISTORY: Noncontributory. SOCIAL HISTORY: Negative for alcohol, tobacco or illicit drug use. She is retired. She is a [employer]. She has no exposures to chemicals, dust, asbestosis or tuberculosis. REVIEW OF SYSTEMS: General, head, ears, eyes, nose, throat, cardiovascular, respiratory, GI, , musculoskeletal, neurologic and skin is negative except as mentioned in the HPI. PHYSICAL EXAMINATION: VITAL SIGNS: Afebrile, pulse 103, blood pressure 108/48, respirations 18, saturation 99% on room air. GENERAL: Patient is awake, alert, in no apparent distress. LUNGS: Decent air entry with no prolonged expiratory phase or wheezing. HEART: Normal rate, regular. ABDOMEN: Soft, nontender, nondistended. Bowel sounds are positive. MUSCULOSKELETAL: No cyanosis or clubbing. No pitting in the bilateral lower extremities. GENITOURINARY: No Wilhelm. NEUROLOGIC: Grossly nonfocal. LABORATORY DATA: WBC 16.2 and down trending, hemoglobin 9.6, platelets 286, 000. Creatinine is 8.37 and roughly stable, BUN 49. Basic metabolic profile is otherwise unremarkable/stable. Albumin 2.2 and phosphorus 7.2. Cortisol level was 10.5. Blood sugars ranged from 182-295. Troponin is down trending to 1.136. C. diff antigen and toxin are negative. All other stool cultures and studies remain unremarkable. The dialysate fluid did not grow any organisms. Stool cultures have no growth at 24 hours and Campylobacter, Shiga toxins were negative. Rapid parasite screen was also unremarkable. IMAGIN. Echocardiogram demonstrates 50%-55% ejection fraction. 2. Critical aortic stenosis was identified. 3. Cardiac catheterization confirms severe aortic stenosis. She also has 3- vessel disease. The most significant of which is 99% lesion of the proximal RCA. ASSESSMENT: 1. Non-ST elevation myocardial infarction. 2. End-stage renal disease. 3. Coronary artery disease, severe. 4. Aortic stenosis, severe to critical. 5. Severe sepsis, possible. DISCUSSION AND PLAN: We will continue empiric antibiotics. I will add Flagyl to add anaerobic coverage as the cefepime is missing that. If we are dealing with intraabdominal process, which I am doubtful of, this will need to be covered. Cardiothoracic Surgery opinion is currently pending. Pulmonary will continue to follow and be available to help in the perioperative period if this moves forward during this hospital stay. Dr. Joy will resume care in the morning. From a purely respiratory standpoint, she is stable for transition out of the IMCU. If surgery is going to happen in 2-3 days in the future, we can transition her to the floor sooner. 70 minutes have been devoted to this patient in various activities. I personally reviewed all imaging studies and laboratory data noted within this document. For greater than fifty percent of this time, I was interacting with the patient at the bedside or coordinating care with the care team. For the remainder of the time I was immediately available to the patient in the hospital unit. JON
[2017-09-07] MEDS: metroNIDAZOLE 500 MG TAB PO SCH ×2 (16:48→20:50)
[2017-09-07] MEDS: Insulin Regular 300 UNITS/3 ML VIAL SC PRN ×2 (16:51→20:56)
--- NOTE | 2017-09-07 17:05 | EKG ---
Test Reason : Blood Pressure : / mmHG Vent. Rate : 100 BPM Atrial Rate : 131 BPM P-R Int : 000 ms QRS Dur : 120 ms QT Int : 386 ms P-R-T Axes : 000 029 175 degrees QTc Int : 497 ms Atrial fibrillation Septal infarct (cited on or before 04-SEP-2017) Marked ST abnormality, possible lateral subendocardial injury LBBB pattern Abnormal ECG When compared with ECG of 05-SEP-2017 05:02, (Unconfirmed) Atrial fibrillation has replaced Sinus rhythm Serial changes of Septal infarct Present Confirmed by DR. Dm COTTON ([id number]) on 09/07/2017 5:05:12 PM Referred By: JENNY Confirmed By:DR. Dm COTTON
--- NOTE | 2017-09-07 20:45 | CON ---
DATE OF CONSULTATION: 09/07/2017 HISTORY OF PRESENT ILLNESS: This is a 77-year-old female who was transferred from the [facility] for chest discomfort. She felt burning in her chest related to medications and was transferred after an elevated white count was found of 21,700 and a troponin bump. PAST MEDICAL HISTORY: Significant for multiple medical problems including end-stage renal disease on peritoneal dialysis set for at least the past couple of years. She has got longstanding hypertensio n, having undergone renal artery stenting about 5 years previously. She had undergone previous cardi ac catheterization about 3 years ago was felt to have mild cardiac disease and she had known aortic v alve stenosis that was felt to be moderate in the past. She has type 2 diabetes mellitus. She has a history of atrial fibrillation which was controlled with medication. PAST SURGICAL HISTORY: Includes AV fistula left arm, PD catheter, cholecystectomy, carotid endartere ctomy, renal artery stenting. ALLERGIES: None known. HOME MEDICATIONS: Included amlodipine, Lipitor, gabapentin, NPH insulin, Protonix, ranitidine, Zolof t, and Renvela. SOCIAL HISTORY: The patient lives at home with her and living a very inactive lifestyle due to lack of energy. She denies any significant weight gain or loss. She has no history of TIA or str katharina. She does admit to fatigue and does not really get around much at all for activity. PHYSICAL EXAMINATION: GENERAL: On examination today, she is pale, elderly female in no distress. VITAL SIGNS: Blood pressure 91 systolic. NECK: She has radiated bruit into her neck. She has a 2-3/6 systolic murmur across her precordium. ABDOMEN: Obese, nontender. EXTREMITIES: She has a fistula in her left arm, but it does not appear to have matured enough to sti ck. She has a PD catheter. She has no peripheral edema at this time. 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 The pat ient needs aortic valve replacement and coronary bypass grafting with good distal targets; however, d ue to the severity of her aortic calcification, would probably need a root replacement and arch repla cement and given her chronic kidney disease and general functional status, I think this would be a la rge undertaking with high morbidity. Family is interested in pursuing surgical option, but once agai n, it would be a major undertaking in this lady. I think she would have to be seen at the [facility] [place] to see if they would consider surgical intervention or medical management which obvio usly has a rather poor prognosis.
[2017-09-07] MEDS: Temazepam 15 MG CAP PO PRN (20:49)
[2017-09-07] MEDS: Atorvastatin Calcium 20 MG TAB PO SCH (20:49)
[2017-09-08] MEDS: Loperamide HCl 2 MG CAP PO PRN (01:39)
[2017-09-08] MEDS: Mag-Al 1200 mg/1200 mg/30 ML UDCUP PO PRN ×2 (03:45→17:39)
[2017-09-08] MEDS: Cefepime 1 GM in Syringe 10 ML SLOW IVP SCH (03:46)
[2017-09-08] MEDS: traMADol HCl 50 MG TAB PO PRN (03:46)
[2017-09-08] MEDS: Insulin Regular 300 UNITS/3 ML VIAL SC PRN (05:19)
--- NOTE | 2017-09-08 08:57 | PDOC.CTH ---
<Mili Nguyen - Last Filed: 09/08/17 09:02> Cardiology Progress Note - Subjective The pt seen and examined. No overnight events. No cardiac complaints. She complains of lack of energy because she could not sleep well last night. The pt verbalized that she would like to have more information about Surgery vs Hospice. She stated she would like to have surgery to live. - Objective Vital Signs Temp Pulse Resp BP Pulse Ox 09/08/17 04:00 98.7 F 81 20 107/27 L 95 09/08/17 00:00 80 17 93/20 L 94 L Admit Weight 168 lb 5 oz Weight 170 lb 1.6 oz 09/07/17 09/08/17 09/09/17 06:59 06:59 06:59 Intake Total 1780 1140 Output Total 180 Balance 1780 960 - Physical Examination General/Neuro: alert & oriented x3 Neck: no JVD present Lungs: other: (diminished at bases) Heart: other: (intermittent irregular) Abdomen: soft Extremities: other: (1+ pitting at Bilat ankles) - Telemetry Telemetry Rhythm: SR with intermittent Afib - Labs Result Diagrams: 09/07/17 03:46 09/07/17 03:46 Troponin/CKMB CK-MB (CK-2) 4.4 ng/mL (0-6.6) 09/05/17 04:47 Troponin I 1.136 ng/mL (< 0.028) H* 09/05/17 04:47 - Assessment/Plan 1. Critical aortic valve stenosis with heavily calcified arota extended to distal arch which require Root and arch replacements in [place] VS d/c home with Hospice - The pt and family still are seeking the best option for the pt's condition. They requested Palliative care for more Hospice information/options. 2. CAD with Severe stenosis in RCA - stable with current medication; cont. monitor on tele 3. HTN - stable with current medication; cont. monitor 4. Paroxysmal AFib - SR/AFib with well controlled HR; cont. monitor on tele 5. ESRD on peritoneal dialysis - managed by disability liaison officer 6. DM type 2 - managed by PCP 7. Anemia - Epogen qwk; managed by disability liaison officer MAR reviewed Review of Systems - Review of Systems Constitutional: reports: see HPI EENTM: reports: no symptoms reported Respiratory: reports: no symptoms reported Cardiac (ROS): reports: no symptoms reported ABD/GI: reports: no symptoms reported : reports: no symptoms reported Musculoskeletal: reports: no symptoms reported <Williams Wilson - Last Filed: 09/08/17 23:30> Cardiology Progress Note - Objective Vital Signs Temp Pulse Pulse Pulse Pulse Resp BP 09/08/17 16:00 98.4 F 81 20 09/08/17 14:01 09/08/17 12:00 80 18 09/08/17 11:33 106 H 77 104 H 125/110 H BP BP BP BP Pulse Ox Pulse Ox Pulse Ox 09/08/17 16:00 82/24 L 100 09/08/17 14:01 55/25 L 09/08/17 12:00 87/27 L 93 L 09/08/17 11:33 91/26 L 67/45 L 104/18 L 95 90 L Admit Weight 168 lb 5 oz Weight 170 lb 1.6 oz 09/07/17 09/08/17 09/09/17 06:59 06:59 06:59 Intake Total 1780 1140 1000 Output Total 180 Balance 7451 323 6699 - Labs Result Diagrams: 09/07/17 03:46 09/07/17 03:46 Troponin/CKMB CK-MB (CK-2) 4.4 ng/mL (0-6.6) 09/05/17 04:47 Troponin I 1.136 ng/mL (< 0.028) H* 09/05/17 04:47 - Assessment/Plan Pt. seen and eval. by me. I agree with the A/P by the [employer] STAMPER. I had a discussion with the pt. and her daughter today about the high risk of possible surgery in this pt. They wish to go to [place] for a second opinion. I will try to contact Dr. Cordero in [place] and see if he is willing to consult with her. This is a difficult situation due to the Aortic calcifications, need for an AVR and CABG in this elderly pt. with several other medical problems. Chest is clear. RRR at the moment of visit.
--- NOTE | 2017-09-08 09:38 | PRG ---
DATE OF SERVICE: 09/08/2017 SUBJECTIVE: Ms. Carr is a 77-year-old white female with ESRD being followed by the Renal Service f or her maintenance peritoneal dialysis. I initiated again the peritoneal dialysis at a smaller fill volume 2 liters and run her between 9 and 10 hours. She tolerated the said treatment. In addition, insurance claims adjuster has evaluated this patient. She was also seen by the cardiothoracic surgeon due to the findings of a significant aortic stenosis. She was found to have a heavily calcified portion of aort a extending to the aortic arch. She will need as per recommendation by Cardiothoracic Surgery aortic valve replacement and coronary bypass. However, due to the severity of the aortic calcification, th e patient has been referred to a [place] center. No new complaints today. The patient is contemplating about the surgery and would like to get a seco id opinion in [place]. PHYSICAL EXAMINATION: VITAL SIGNS: Blood pressure 107/77, heart rate 81, respiratory rate 20, temperature 98.7, pulse ox 9 5%. GENERAL: Noted to be awake, alert, supine, comfortable. SKIN: Adequate turgor. HEENT: She has slightly pale conjunctivae, anicteric sclerae. NECK: No neck mass, no carotid bruits, no JVD. CHEST: No deformities. LUNGS: Clear breath sounds. No wheezing, no crackles. HEART: Normal sinus rhythm. She has a grade 2/6 systolic murmur, no gallops or rubs. ABDOMEN: Globular, soft, nontender. No masses. EXTREMITIES: No edema. Positive for PD catheter in the abdomen. MEDICATIONS: 09/08/2017 - Reviewed. LABORATORY: 09/07/2017 - White count 6.2, hemoglobin 9.6. Sodium 132, potassium 3.9, chloride 96, c arbon dioxide 23, BUN 49, creatinine 8.37, glucose 184, phosphorus 7.2, albumin 2.2. ASSESSMENT AND PLAN: 1. End-stage renal disease, stable. Tolerating current continuous cycling peritoneal dialysis regim en. We will continue with the current continuous cycling peritoneal dialysis regimen of 2 liter fill volume. She seems to be tolerating this, adjust as needed. 2. Coronary artery disease/aortic valve disease. Cardiothoracic Surgery has evaluated the patient, recommendation is to refer her to a [facility]. She will be evaluated for possible aorti c valve replacement and coronary artery bypass graft. 2. Anemia, continuing weekly Epogen. I agree with current management.
[2017-09-08] MEDS: metroNIDAZOLE 500 MG TAB PO SCH ×3 (09:42→20:56)
[2017-09-08] MEDS: Folic Acid/Vit B Comp W-C PO SCH (09:42)
[2017-09-08] MEDS: Sevelamer Carbonate 800 MG TAB PO SCH ×3 (09:42→17:45)
[2017-09-08] MEDS: Heparin 5,000 UNITS/ML VIAL SC SCH ×2 (09:43→20:56)
[2017-09-08] MEDS: Pantoprazole 40 MG VIAL IVP SCH (09:44)
[2017-09-08] MEDS: Docusate 100 MG CAP PO SCH ×2 (09:44→20:57)
--- NOTE | 2017-09-08 09:55 | PDOC.PN ---
- Subjective Encounter Start Date: 09/08/17 Encounter Start Time: 09:00 Patient seen and examined. No new complaints. No overnight events - Objective Resuscitation Status: Resuscitation Status FULL:Full Resuscitation MAR Reviewed: Yes Vital Signs & Weight: Vital Signs (12 hours) Temp Pulse Resp BP Pulse Ox 09/08/17 04:00 98.7 F 81 20 107/27 L 95 09/08/17 00:00 80 17 93/20 L 94 L Weight Admit Weight 168 lb 5 oz Weight 170 lb 1.6 oz I&O: 09/07/17 09/08/17 09/09/17 06:59 06:59 06:59 Intake Total 1780 1140 Output Total 180 Balance 1780 960 Result Diagrams: 09/07/17 03:46 09/07/17 03:46 Additional Labs: Accuchecks 09/08/17 09/07/17 09/07/17 05:14 20:56 16:04 POC Glucose 307 H 252 H 209 H EKG Reviewed by me: Yes Phys Exam - Physical Examination Constitutional: NAD HEENT: PERRLA, moist MMs, sclera anicteric Neck: no JVD, supple Respiratory: no wheezing, no rales, no rhonchi Cardiovascular: RRR, no rub SM+ Gastrointestinal: soft, non-tender, no distention, positive bowel sounds Musculoskeletal: no edema, pulses present Neurological: non-focal, normal sensation Lymphatic: no nodes Psychiatric: normal affect, A&O x 3 Skin: no rash, normal turgor Dx/Plan (1) Critical aortic valve stenosis Code(s): I35.0 - NONRHEUMATIC AORTIC (VALVE) STENOSIS Status: Acute (2) Leucocytosis Code(s): D72.829 - ELEVATED WHITE BLOOD CELL COUNT, UNSPECIFIED Status: Acute (3) Non-ST elevation myocardial infarction (NSTEMI), type 2 Code(s): I21.A1 - MYOCARDIAL INFARCTION TYPE 2 Status: Acute (4) Anemia of renal disease Code(s): D63.1 - ANEMIA IN CHRONIC KIDNEY DISEASE Status: Chronic (5) ESRD on peritoneal dialysis Code(s): N18.6 - END STAGE RENAL DISEASE; Z99.2 - DEPENDENCE ON RENAL DIALYSIS Status: Chronic (6) HTN (hypertension) Code(s): I10 - ESSENTIAL (PRIMARY) HYPERTENSION Status: Chronic Qualifiers: Hypertension type: essential hypertension Qualified Code(s): I10 - Essential (primary) hypertension Comment: Better controlled. (7) Paroxysmal atrial fibrillation Code(s): I48.0 - PAROXYSMAL ATRIAL FIBRILLATION Status: Chronic (8) Physical deconditioning Code(s): R53.81 - OTHER MALAISE Status: Chronic (9) Secondary hyperparathyroidism of renal origin Code(s): N25.81 - SECONDARY HYPERPARATHYROIDISM OF RENAL ORIGIN Status: Chronic (10) Type 2 diabetes mellitus Status: Chronic Qualifiers: Diabetes mellitus complication status: with kidney complications Diabetes mellitus complication detail: with chronic kidney disease Chronic kidney disease stage: on chronic dialysis - Plan cont current plan of care, plan discussed w/ family * medication reviewed as below * symptomatic treatment * pt and family to decide about about goal of care * palliative care team consulted * cardiology following * CT surgeon recommendation noted. Review of Systems - Review of Systems ENT: negative: Ear Pain, Ear Discharge, Nose Pain, Nose Discharge, Nose Congestion, Mouth Pain, Mouth Swelling, Throat Pain, Throat Swelling, Other Respiratory: negative: Cough, Dry, Shortness of Breath, Hemoptysis, SOB with Excertion, Pleuritic Pain, Sputum, Wheezing Cardiovascular: negative: chest pain, palpitations, orthopnea, paroxysmal nocturnal dyspnea, edema, light headedness, other Gastrointestinal: negative: Nausea, Vomiting, Abdominal Pain, Diarrhea, Constipation, Melena, Hematochezia, Other Genitourinary: negative: Dysuria, Frequency, Incontinence, Hematuria, Retention , Other Musculoskeletal: negative: Neck Pain, Shoulder Pain, Arm Pain, Back Pain, Hand Pain, Leg Pain, Foot Pain, Other Skin: negative: Rash, Lesions, Mick, Bruising, Other - Medications/Allergies Allergies/Adverse Reactions: Allergies Allergy/AdvReac Type Severity Reaction Status Date / Time No Known Drug Allergies Allergy Verified 10/04/15 01:31 Medications: Current Medications Acetaminophen (Tylenol) 650 mg PO Q4H PRN PRN Reason: Headache/Fever or Pain Last Admin: 09/06/17 18:37 Dose: 650 mg Acetaminophen/Codeine Phosphate (Tylenol #3) 1 tab PO Q4H PRN PRN Reason: Mild Pain (1-3) Acetaminophen/Codeine Phosphate (Tylenol #3) 2 tab PO Q4H PRN PRN Reason: Moderate Pain (4-6) Hydrocodone Bitart/Acetaminophen ([place] 5/325) 1 tab PO Q4H PRN PRN Reason: Moderate Pain (4-6) Last Admin: 09/07/17 06:34 Dose: 1 tab Al Hydroxide/Mg Hydroxide (Maalox) 30 ml PO Q4H PRN PRN Reason: Heartburn or Indigestion Last Admin: 09/08/17 03:45 Dose: 30 ml Artificial Tears (Tears Naturale) 0 drop EA EYE PRN PRN PRN Reason: Dry Eyes Aspirin (Aspirin Chewable) 81 mg PO DAILY [facility] Last Admin: 09/07/17 09:22 Dose: 81 mg Atorvastatin Calcium (Lipitor) 20 mg PO HS [facility] Last Admin: 09/07/17 20:49 Dose: 20 mg Calcium Carbonate (Tums) 1,000 mg PO Q4H PRN PRN Reason: Heartburn or Indigestion Last Admin: 09/06/17 20:22 Dose: 1,000 mg Dextrose/Water (Dextrose 50%) 25 gm SLOW IVP PRN PRN PRN Reason: Hypoglycemia Docusate Sodium (Colace) 100 mg PO BID [facility] Last Admin: 09/07/17 20:50 Dose: Not Given Epoetin Timur (Procrit) 7,500 units SC Q7D@1200 [facility] Last Admin: 09/05/17 13:03 Dose: 7,500 units Glucagon (Glucagon) 1 mg IM PRN PRN PRN Reason: Hypoglycemia Guaifenesin (Robitussin Sf) 200 mg PO Q4H PRN PRN Reason: Cough Heparin Sodium (Porcine) (Heparin) 5,000 units SC BID [facility] Last Admin: 09/07/17 20:49 Dose: 5,000 units Dextrose/Water (D5w) 1,000 mls @ 0 mls/hr IV .Q0M PRN; As Directed PRN Reason: Hypoglycemia Cefepime HCl 1 gm/ Syringe 10 mls @ 120 mls/hr SLOW IVP Q24HR@0400 [facility] Last Admin: 09/08/17 03:46 Dose: 10 mls Insulin Human Regular (Humulin R) 0 units SC .MILD SLIDING SCALE PRN PRN Reason: Mild Correctional Scale Last Admin: 09/08/17 05:19 Dose: 5 unit Insulin Human Regular (Humulin R) 0 units SC .BEDTIME SLIDING SC PRN PRN Reason: Bedtime Correctional Scale Last Admin: 09/07/17 20:56 Dose: 2 unit Labetalol HCl (Normodyne) 10 mg SLOW IVP Q4H PRN PRN Reason: Systolic BP > 180 Loperamide HCl (Imodium) 2 mg PO PRN PRN PRN Reason: Diarrhea/Loose Stools Last Admin: 09/08/17 01:39 Dose: 2 mg Loratadine (Claritin) 10 mg PO DAILYPRN PRN PRN Reason: Sinus Symptoms Magnesium Hydroxide (Milk Of Magnesium) 30 ml PO DAILYPRN PRN PRN Reason: Constipation Metoclopramide HCl (Reglan) 5 mg IVP Q6H PRN PRN Reason: Nausea/Vomiting Metronidazole (Flagyl) 500 mg PO TID [facility] Last Admin: 09/07/17 20:50 Dose: 500 mg Mineral Oil/White Petrolatum (Eucerin Cream) 0 gm TOP BIDPRN PRN PRN Reason: Dry Skin Nitroglycerin (Nitrostat) 0.4 mg PO Q5MIN PRN PRN Reason: Chest Pain Nitroglycerin (Nitrostat) 0.4 mg SL Q5MIN PRN PRN Reason: Chest Pain Ondansetron HCl (Zofran Odt) 4 mg PO Q6H PRN PRN Reason: Nausea/Vomiting Last Admin: 09/07/17 04:21 Dose: 4 mg Ondansetron HCl (Zofran) 4 mg IVP Q6H PRN PRN Reason: Nausea/Vomiting Last Admin: 09/06/17 19:28 Dose: 4 mg Pantoprazole Sodium (Protonix) 40 mg IVP DAILY [facility] Last Admin: 09/07/17 09:22 Dose: 40 mg Senna (Senokot) 2 tab PO HSPRN PRN PRN Reason: Constipation Sertraline HCl (Zoloft) 12.5 mg PO DAILY [facility] Last Admin: 09/07/17 09:21 Dose: 12.5 mg Sevelamer Carbonate (Renvela) 800 mg PO TID-[facility] Last Admin: 09/07/17 16:48 Dose: 800 mg Sodium Chloride (Limestone Nasal [place] 0.65%) 0 ml EA NARE QIDPRN PRN PRN Reason: Nasal Congestion Sodium Chloride (Flush - Normal Saline) 10 ml IVF Q12HR [facility] Last Admin: 09/08/17 01:39 Dose: 10 ml Sodium Chloride (Flush - Normal Saline) 10 ml IVF PRN PRN PRN Reason: Saline Flush Temazepam (Restoril) 15 mg PO HSPRN PRN PRN Reason: Insomnia Last Admin: 09/07/17 20:49 Dose: 15 mg Tramadol HCl (Ultram) 50 mg PO Q6H PRN PRN Reason: Moderate Pain (4-6) Last Admin: 09/08/17 03:46 Dose: 50 mg Vitamin B Complex/Vit C/Folic Acid (Nephro-Christiano Tablet) 1 tab PO DAILY [facility] Last Admin: 09/07/17 09:22 Dose: 1 tab
[2017-09-08] MEDS: Acetaminophen 325 MG TAB PO PRN (12:15)
--- NOTE | 2017-09-08 12:21 | PRG ---
DATE OF SERVICE: 09/08/2017 SERVICE: Pulmonary Medicine. INTERVAL HISTORY: The patient is doing fine from a respiratory standpoint. She is breathing comfort ably and does not endorse any chest discomfort. Otherwise, there has been no interval change to her condition. Dr. Harry saw her yesterday and suggested that she would likely need reconstruction of he r entire aortic root. Given her debility, she is not a good candidate to undergo this procedure cert ainly in this location. The family is interested in pursuing a second opinion at [facility] as recom mended by Dr. Harry. PHYSICAL EXAMINATION: VITAL SIGNS: Afebrile, pulse 81, blood pressure 110/29, respirations 18, saturation 97% on room air. GENERAL: The patient is awake, alert, in no apparent distress. LUNGS: Decent air entry with no prolonged expiratory phase, wheezing or crackles. HEART: Normal rate, regular. ABDOMEN: Soft, nontender, and nondistended. Bowel sounds are positive. MUSCULOSKELETAL: No cyanosis or clubbing. There is trace pitting in the bilateral lower extremities . NEUROLOGIC: Grossly nonfocal. LABORATORY DATA: WBC 16.2, hemoglobin 9.6, and platelets 289,000. PTT 72. Blood sugar ranges from 307-139. Stool cultures are negative to date. ASSESSMENT: 1. Non-ST elevation myocardial infarction. 2. End-stage renal disease. 3. Coronary artery disease, severe. 4. Aortic stenosis, severe to critical. 5. Severe sepsis, unlikely. 6. Leukocytosis for greater than 1 year. DISCUSSION AND PLAN: We will continue following culture results. At this point, we have no true jasper rce of infection. Leukocytosis is likely chronic in nature. She may need to undergo an outpatient e valuation for the same. Either way, empiric antibiotics will be continued for the time being. From a purely respiratory standpoint, she is stable for transition to the floor. Once she leaves the IMCU , Pulmonary will likely sign off.
[2017-09-08] MEDS: Calcium Carbonate 500 MG ChewTAB PO PRN (13:50)
[2017-09-08] MEDS ORDERED: Sodium Chloride 0.9% 500 ML IV SCH (16:30)
[2017-09-08] MEDS: Atorvastatin Calcium 20 MG TAB PO SCH (20:56)
[2017-09-09] MEDS: Acetaminophen 325 MG TAB PO PRN ×3 (00:23→16:26)
[2017-09-09] MEDS: Ondansetron HCl/PF 4 MG/2 ML Vial IVP PRN (02:27)
[2017-09-09] MEDS: diphenhydrAMINE 25 MG CAP PO PRN ×2 (02:52→09:05)
[2017-09-09] MEDS: Cefepime 1 GM in Syringe 10 ML SLOW IVP SCH (04:06)
[2017-09-09 05:09] LABS: Anion Gap 18 mmol/L (10-20); BUN (Urea Nitrogen) 40 mg/dL (9.8-20.1); Calc. Creatinine Clearance 7 mL/min (70-130); Calcium 8.2 mg/dL (7.8-10.44); Carbon Dioxide 20 mmol/L (23-31); Chloride 94 mmol/L (98-107); Estimated GFR-MDRD 5; Glucose 292 mg/dL (83-110); Potassium 3.9 mmol/L (3.5-5.1); Sodium 128 mmol/L (136-145)
[2017-09-09 05:26] LABS: Band 1 % (5-11); Hemoglobin 9.7 g/dL (12.0-16.0); Lymphocytes 12 % (21-51); MDiff Complete? YES; Macrocytosis MODERATE=16-30 cells (100X) (0-5/hpf); Mean Corpuscular HGB CONC 30.4 g/dL (32.0-36.0); Mean Platelet Volume 8.4 fL (7.4-10.4); Monocytes 1 % (0-10); Neutrophil 85 % (42-75); PLT Morphology Comment Appears Adequate; Platelet Count 297 thou/uL (130-400); RBC Distribution Width 12.9 % (11.5-14.5); Reactive Lymphocytes 1 % (0-10); Red Blood Cell (RBC) Count 2.93 mill/uL (4.20-5.40); White Blood Cell (WBC) Count 20.3 thou/uL (4.8-10.8)
[2017-09-09] MEDS: Insulin Regular 300 UNITS/3 ML VIAL SC PRN ×2 (06:19→17:15)
[2017-09-09] MEDS ORDERED: metroNIDAZOLE 500 MG TAB PO SCH (08:00)
[2017-09-09] MEDS: Folic Acid/Vit B Comp W-C PO SCH (08:57)
[2017-09-09] MEDS: Sevelamer Carbonate 800 MG TAB PO SCH ×3 (08:58→17:08)
[2017-09-09] MEDS: Heparin 5,000 UNITS/ML VIAL SC SCH ×2 (08:58→20:37)
[2017-09-09] MEDS: Docusate 100 MG CAP PO SCH ×2 (08:59→20:44)
[2017-09-09] MEDS ORDERED: Cipro 250 MG TAB PO SCH (09:00)
[2017-09-09] MEDS: metroNIDAZOLE 250 MG TAB PO SCH ×3 (09:05→20:37)
--- NOTE | 2017-09-09 09:09 | PDOC.CTH ---
Cardiology Progress Note - Subjective the pt seen and examined. No overnight events. She feels very fatigue due to lack of sleep and no appetite. - Objective Vital Signs Temp Pulse Resp BP Pulse Ox 09/09/17 06:21 96 09/09/17 04:00 98.7 F 88 18 133/44 L 96 09/09/17 00:00 98.7 F 92 18 114/48 L 100 Admit Weight 168 lb 5 oz Weight 170 lb 1.6 oz 09/08/17 09/09/17 09/10/17 06:59 06:59 06:59 Intake Total 1140 1240 Output Total 180 Balance 960 1240 - Physical Examination General/Neuro: alert & oriented x3 Neck: no JVD present Lungs: other: (diminished at bases) Heart: other: (irregular) Abdomen: soft Extremities: other: (No edema) - Telemetry Telemetry Rhythm: Afib - Labs Result Diagrams: 09/09/17 03:30 09/09/17 03:30 Troponin/CKMB CK-MB (CK-2) 4.4 ng/mL (0-6.6) 09/05/17 04:47 Troponin I 1.136 ng/mL (< 0.028) H* 09/05/17 04:47 - Assessment/Plan 1. Severe CAD, Critical aortic valve stenosis with heavily calcified arota extended to distal arch which require Root and arch replacements in [place] VS d /c home with Hospice - They wish to go to [facility] for a second opinion. 2. CAD with Severe stenosis in RCA - stable with current medication; cont. monitor on tele 3. HTN - Hypotensive during HS; stable with current medication now; cont. monitor 4. Paroxysmal AFib - SR/AFib with well controlled HR; cont. monitor on tele 5. ESRD on peritoneal dialysis - managed by echocardiograph tech 6. DM type 2 - managed by PCP 7. Anemia - Epogen qwk; managed by echocardiograph tech 8. Hyponaterimia - MAR reviewed Review of Systems - Review of Systems Constitutional: reports: see HPI EENTM: reports: no symptoms reported Respiratory: reports: no symptoms reported Cardiac (ROS): reports: no symptoms reported ABD/GI: reports: see HPI
--- NOTE | 2017-09-09 09:30 | PRG ---
DATE OF SERVICE: 09/09/2017 SUBJECTIVE: Ms. Carr is a 77-year-old white female with ESRD, currently on nocturnal CCPD. The pa tient was unable to go to sleep. She was then given her Restoril due to the low blood pressure last night. Normal saline 500 mL bolus was given, which improved the blood pressure. No complaints of chest pain or shortness of breath. Awaiting possible transfer to [place] for further evaluation of her aortic stenosis. PHYSICAL EXAMINATION: VITAL SIGNS: Blood pressure is 133/44 with a heart rate of 88, respiratory rate 18, temperature 98.7 , pulse ox 96%. GENERAL: Noted to be awake, not in overt distress. HEENT: Pinkish conjunctivae, anicteric sclerae. NECK: No neck mass, no carotid bruits, no JVD. CHEST: No deformities. LUNGS: Clear breath sounds. HEART: Normal sinus rhythm. No murmur, no gallops, no rubs. ABDOMEN: Globular, soft, nontender, no masses. EXTREMITIES: No edema, no deformities. Please note she has a PD catheter in the abdomen. MEDICATIONS: 09/09/2017 - Reviewed. LABORATORY: 09/09/2017 - White count 20.3, hemoglobin 9.7. Sodium 128, potassium 3.9, chloride 94, carbon dioxide 20, BUN 40, creatinine 7.74, glucose 292, calcium 8.2. ASSESSMENT AND PLAN: 1. End-stage renal disease, stable. Continue current continuous cycling peritoneal dialysis regimen . No changes will be made with her peritoneal dialysis. We are using a 1.5% PD solution to minimize ultrafiltration due to the low blood pressure. 2. Hypertension - clinically improved. P.r.n. normal saline boluses as needed. 3. Aortic stenosis - the patient for further evaluation in [place] for ? of aortic valve replacement . Overall, prognosis remains guarded.
[2017-09-09] MEDS ORDERED: Metoclopramide HCl 10 MG TAB PO PRN (10:15)
--- NOTE | 2017-09-09 10:39 | PDOC.PN ---
- Subjective Encounter Start Date: 09/09/17 Encounter Start Time: 10:00 Patient seen and examined. today has nausea, poor apatite, No overnight events - Objective Resuscitation Status: Resuscitation Status FULL:Full Resuscitation MAR Reviewed: Yes Vital Signs & Weight: Vital Signs (12 hours) Temp Pulse Resp BP Pulse Ox 09/09/17 06:21 96 09/09/17 04:00 98.7 F 88 18 133/44 L 96 09/09/17 00:00 98.7 F 92 18 114/48 L 100 Weight Admit Weight 168 lb 5 oz Weight 170 lb 1.6 oz I&O: 09/08/17 09/09/17 09/10/17 06:59 06:59 06:59 Intake Total 1140 1240 Output Total 180 Balance 960 1240 Result Diagrams: 09/09/17 03:30 09/09/17 03:30 Additional Labs: Accuchecks 09/09/17 09/08/17 09/08/17 06:12 23:08 17:09 POC Glucose 266 H 285 H 268 H 09/08/17 11:33 POC Glucose 139 H EKG Reviewed by me: Yes (afib) Phys Exam - Physical Examination Constitutional: NAD HEENT: PERRLA, moist MMs, sclera anicteric Neck: no JVD, supple Respiratory: no wheezing, no rales, no rhonchi Cardiovascular: irregular SM+ Gastrointestinal: soft, non-tender, no distention, positive bowel sounds PD catheter+ Musculoskeletal: no edema, pulses present Neurological: non-focal, normal sensation Lymphatic: no nodes Psychiatric: normal affect, A&O x 3 Skin: no rash, normal turgor Dx/Plan (1) Critical aortic valve stenosis Code(s): I35.0 - NONRHEUMATIC AORTIC (VALVE) STENOSIS Status: Acute (2) Leucocytosis Code(s): D72.829 - ELEVATED WHITE BLOOD CELL COUNT, UNSPECIFIED Status: Acute (3) Non-ST elevation myocardial infarction (NSTEMI), type 2 Code(s): I21.A1 - MYOCARDIAL INFARCTION TYPE 2 Status: Acute (4) Anemia of renal disease Code(s): D63.1 - ANEMIA IN CHRONIC KIDNEY DISEASE Status: Chronic (5) ESRD on peritoneal dialysis Code(s): N18.6 - END STAGE RENAL DISEASE; Z99.2 - DEPENDENCE ON RENAL DIALYSIS Status: Chronic (6) HTN (hypertension) Code(s): I10 - ESSENTIAL (PRIMARY) HYPERTENSION Status: Chronic Qualifiers: Hypertension type: essential hypertension Qualified Code(s): I10 - Essential (primary) hypertension Comment: Better controlled. (7) Paroxysmal atrial fibrillation Code(s): I48.0 - PAROXYSMAL ATRIAL FIBRILLATION Status: Chronic (8) Physical deconditioning Code(s): R53.81 - OTHER MALAISE Status: Chronic (9) Secondary hyperparathyroidism of renal origin Code(s): N25.81 - SECONDARY HYPERPARATHYROIDISM OF RENAL ORIGIN Status: Chronic (10) Type 2 diabetes mellitus Status: Chronic Qualifiers: Diabetes mellitus complication status: with kidney complications Diabetes mellitus complication detail: with chronic kidney disease Chronic kidney disease stage: on chronic dialysis - Plan cont current plan of care, plan discussed w/ family, 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 Review of Systems - Review of Systems Constitutional: negative: fever, chills, sweats, weakness, malaise, other Eyes: negative: Pain, Vision Change, Conjunctivae Inflammation, Eyelid Inflammation, Redness, Other ENT: negative: Ear Pain, Ear Discharge, Nose Pain, Nose Discharge, Nose Congestion, Mouth Pain, Mouth Swelling, Throat Pain, Throat Swelling, Other Respiratory: negative: Cough, Dry, Shortness of Breath, Hemoptysis, SOB with Excertion, Pleuritic Pain, Sputum, Wheezing Cardiovascular: negative: chest pain, palpitations, orthopnea, paroxysmal nocturnal dyspnea, edema, light headedness, other Gastrointestinal: Nausea. negative: Vomiting, Abdominal Pain, Diarrhea, Constipation, Melena, Hematochezia, Other Genitourinary: negative: Dysuria, Frequency, Incontinence, Hematuria, Retention , Other Musculoskeletal: negative: Neck Pain, Shoulder Pain, Arm Pain, Back Pain, Hand Pain, Leg Pain, Foot Pain, Other Skin: negative: Rash, Lesions, Mick, Bruising, Other - Medications/Allergies Allergies/Adverse Reactions: Allergies Allergy/AdvReac Type Severity Reaction Status Date / Time No Known Drug Allergies Allergy Verified 10/04/15 01:31 Medications: Current Medications Acetaminophen (Tylenol) 650 mg PO Q4H PRN PRN Reason: Headache/Fever or Pain Last Admin: 09/09/17 08:58 Dose: 650 mg Acetaminophen/Codeine Phosphate (Tylenol #3) 1 tab PO Q4H PRN PRN Reason: Mild Pain (1-3) Acetaminophen/Codeine Phosphate (Tylenol #3) 2 tab PO Q4H PRN PRN Reason: Moderate Pain (4-6) Hydrocodone Bitart/Acetaminophen ([place] 5/325) 1 tab PO Q4H PRN PRN Reason: Moderate Pain (4-6) Last Admin: 09/07/17 06:34 Dose: 1 tab Al Hydroxide/Mg Hydroxide (Maalox) 30 ml PO Q4H PRN PRN Reason: Heartburn or Indigestion Last Admin: 09/08/17 17:39 Dose: 30 ml Artificial Tears (Tears Naturale) 0 drop EA EYE PRN PRN PRN Reason: Dry Eyes Aspirin (Aspirin Chewable) 81 mg PO DAILY [facility] Last Admin: 09/09/17 08:58 Dose: 81 mg Atorvastatin Calcium (Lipitor) 20 mg PO HS [facility] Last Admin: 09/08/17 20:56 Dose: 20 mg Calcium Carbonate (Tums) 1,000 mg PO Q4H PRN PRN Reason: Heartburn or Indigestion Last Admin: 09/08/17 13:50 Dose: 1,000 mg Ciprofloxacin (Cipro) 250 mg PO DAILY [facility] Dextrose/Water (Dextrose 50%) 25 gm SLOW IVP PRN PRN PRN Reason: Hypoglycemia Diphenhydramine HCl (Benadryl) 25 mg PO Q6H PRN PRN Reason: Itching & Insomnia Last Admin: 09/09/17 09:05 Dose: 25 mg Docusate Sodium (Colace) 100 mg PO BID [facility] Last Admin: 09/09/17 08:59 Dose: Not Given Epoetin Timur (Procrit) 7,500 units SC Q7D@1200 [facility] Last Admin: 09/05/17 13:03 Dose: 7,500 units Glucagon (Glucagon) 1 mg IM PRN PRN PRN Reason: Hypoglycemia Guaifenesin (Robitussin Sf) 200 mg PO Q4H PRN PRN Reason: Cough Heparin Sodium (Porcine) (Heparin) 5,000 units SC BID [facility] Last Admin: 09/09/17 08:58 Dose: 5,000 units Dextrose/Water (D5w) 1,000 mls @ 0 mls/hr IV .Q0M PRN; As Directed PRN Reason: Hypoglycemia Insulin Human Regular (Humulin R) 0 units SC .MILD SLIDING SCALE PRN PRN Reason: Mild Correctional Scale Last Admin: 09/08/17 05:19 Dose: 5 unit Insulin Human Regular (Humulin R) 0 units SC .BEDTIME SLIDING SC PRN PRN Reason: Bedtime Correctional Scale Last Admin: 09/09/17 06:19 Dose: 3 unit Labetalol HCl (Normodyne) 10 mg SLOW IVP Q4H PRN PRN Reason: Systolic BP > 180 Loperamide HCl (Imodium) 2 mg PO PRN PRN PRN Reason: Diarrhea/Loose Stools Last Admin: 09/08/17 01:39 Dose: 2 mg Loratadine (Claritin) 10 mg PO DAILYPRN PRN PRN Reason: Sinus Symptoms Magnesium Hydroxide (Milk Of Magnesium) 30 ml PO DAILYPRN PRN PRN Reason: Constipation Metoclopramide HCl (Reglan) 5 mg PO Q6H PRN PRN Reason: Nausea/Vomiting Metronidazole (Flagyl) 250 mg PO TID [facility] Last Admin: 09/09/17 09:05 Dose: 250 mg Mineral Oil/White Petrolatum (Eucerin Cream) 0 gm TOP BIDPRN PRN PRN Reason: Dry Skin Nitroglycerin (Nitrostat) 0.4 mg SL Q5MIN PRN PRN Reason: Chest Pain Ondansetron HCl (Zofran Odt) 4 mg PO Q6H PRN PRN Reason: Nausea/Vomiting Last Admin: 09/07/17 04:21 Dose: 4 mg Ondansetron HCl (Zofran) 4 mg IVP Q6H PRN PRN Reason: Nausea/Vomiting Last Admin: 09/09/17 02:27 Dose: 4 mg Pantoprazole Sodium (Protonix) 40 mg PO DAILY [facility] Last Admin: 09/09/17 09:06 Dose: 40 mg Senna (Senokot) 2 tab PO HSPRN PRN PRN Reason: Constipation Sertraline HCl (Zoloft) 12.5 mg PO DAILY [facility] Last Admin: 09/09/17 08:58 Dose: 12.5 mg Sevelamer Carbonate (Renvela) 800 mg PO TID-WM [facility] Last Admin: 09/09/17 08:58 Dose: 800 mg Sodium Chloride ([place] Nasal [place] 0.65%) 0 ml EA NARE QIDPRN PRN PRN Reason: Nasal Congestion Sodium Chloride (Flush - Normal Saline) 10 ml IVF Q12HR [facility] Last Admin: 09/09/17 08:59 Dose: 10 ml Sodium Chloride (Flush - Normal Saline) 10 ml IVF PRN PRN PRN Reason: Saline Flush Last Admin: 09/09/17 04:06 Dose: 10 ml Temazepam (Restoril) 15 mg PO HSPRN PRN PRN Reason: Insomnia Last Admin: 09/07/17 20:49 Dose: 15 mg Tramadol HCl (Ultram) 50 mg PO Q6H PRN PRN Reason: Moderate Pain (4-6) Last Admin: 09/08/17 03:46 Dose: 50 mg Vitamin B Complex/Vit C/Folic Acid (Nephro-Christiano Tablet) 1 tab PO DAILY [facility] Last Admin: 09/09/17 08:57 Dose: 1 tab
--- NOTE | 2017-09-09 11:32 | PRG ---
DATE OF SERVICE: 09/09/2017 SERVICE: Pulmonary Medicine. INTERVAL HISTORY: The patient is doing really well from a respiratory standpoint. Yesterday, she wa s having some blood pressure issues. She got a half liter of fluid and she actually perked up quite a bit. She currently denies any shortness of breath, chest pain, nausea or vomiting. She is extraor dinarily weak and has difficult time getting about without significant assistance. PHYSICAL EXAMINATION: VITAL SIGNS: Afebrile, pulse 88, blood pressure 133/44, respirations 18, saturation 96% on room air. GENERAL: The patient is awake and alert, in no apparent distress. LUNGS: Decent air entry. There is no prolonged expiratory phase. No wheezing, rhonchi, or crackles are appreciated. HEART: Normal rate, regular. ABDOMEN: Soft, nontender, and nondistended. Bowel sounds are positive. MUSCULOSKELETAL: No cyanosis or clubbing. No pitting in the bilateral lower extremities. NEUROLOGIC: Grossly nonfocal. LABORATORY DATA: WBC 20.3, hemoglobin 9.7, platelets 297,000. Creatinine 7.74, BUN 40, bicarbonate 20, chloride 94, and sodium 128 and down trending. Rapid parasite screen, Campylobacter is negative. C. diff antigen and toxin is unremarkable. Stool culture is negative. Body fluid culture from the dialysate fluid is also unremarkable. ASSESSMENT: 1. Non-ST elevation myocardial infarction. 2. End-stage renal disease. 3. Coronary artery disease, severe. 4. Aortic stenosis, severe to critical. 5. Severe sepsis, unlikely. 6. Leukocytosis for greater than 1 year. DISCUSSION AND PLAN: I will continue our empiric antibiotics though we have not discovered anything to focus our attention on. She remains stable for transition out of the ICU. I think she is on the dry side and may benefit from a little bit of extra volume. Pulmonary will continue to follow if she remains in this location, but from my perspective, she is stable for transition to the telemetry [facility].
--- NOTE | 2017-09-09 11:44 | DIS ---
DATE OF ADMISSION: 09/04/2017 DATE OF DISCHARGE: 09/09/2017 PRIMARY CARE PHYSICIAN: Dr. Elio Francis. DISCHARGE DISPOSITION: [facility] for higher level of care. PRIMARY DISCHARGE DIAGNOSES: 1. Critical aortic valve stenosis. 2. Non-ST elevation myocardial infarction. 3. Leukocytosis, ruled out sepsis. 4. Hypotension. 5. Intolerance of peritoneal dialysis. SECONDARY DISCHARGE DIAGNOSES: Diabetes type 2, secondary hyperparathyroidism of renal origin, chronic physical deconditioning, paroxysmal atrial fibrillation , hypertension, end-stage renal disease on peritoneal dialysis, anemia of renal disease and coronary artery disease. PRIMARY PROCEDURE/OPERATION: Cardiac catheterization. RADIOLOGICAL INVESTIGATION: Echocardiography showed critical aortic stenosis. Cardiac catheterization showed severe 70% left main coronary artery stenosis, 50 % stenosis to left anterior descending and 99% stenosis of right coronary artery. SIGNIFICANT LABS: WBC 20.3, hemoglobin 9.7, MCV 109 and platelet 297. BMP: Sodium 128, potassium 3.9, BUN 40, creatinine 7.74 and calcium 8.2. DISCHARGE MEDICATIONS: The patient will be on following medication upon discharge. Lipitor 20 mg p.o. daily, Neurontin 300 mg p.o. daily, NPH insulin as per sliding scale, Protonix 40 mg p.o. daily, Zoloft 12.5 mg p.o. daily, Renvela 800 mg p.o. t.i.d. and aspirin 81 mg p.o. daily. CONTRAINDICATIONS: None. CODE STATUS: FULL CODE. INPATIENT CONSULTANTS: Dr. Harry was consulted and he was not comfortable doing aortic valve replacement with aortic root and aortic arch replacement. Dr. Yang was following for peritoneal dialysis. Dr. Rankin was following because patient was in [facility]. Dr. Wilson was following while in hospital. TEST RESULTS PENDING ON DISCHARGE: None. ALLERGIES: No known drug allergy. DISCHARGE PLAN: We are transferring this patient to high level of care at [facility] for further evaluation and treatment. HOSPITAL COURSE: A 77-year-old female who was admitted by Dr. Cody Rose. Please see his H&P for further detail. She mainly came this time in hospital for the nausea, vomiting, and substernal chest pain. She also had significantly abnormal troponin and she was found with a non-STEMI. Regarding peritoneal dialysis, Dr. Yang was doing peritoneal dialysis. While in hospital, this patient was not tolerating peritoneal dialysis because she was getting nausea, vomiting and abdominal discomfort. While in hospital, she also had a couple of diarrhea and she had very poor p.o. intake after peritoneal dialysis and that required ICU transfer because of low blood pressure and we discontinued all antihypertensive medications. During this admission when we did echocardiography, we found that critical aortic stenosis. Dr. Wilson also did cardiac catheterization and patient requires urgent CABG as well as aortic valve replacement, aortic root and aortic arch replacement. Our cardiovascular surgeon is not comfortable doing surgery here and that is why we initiated transfer to [facility]. The patient's hospital course was notified to receiving hospital. They accepted this patient for transfer. At this point, the patient will go to that hospital for higher level of care. The patient is seen and examined at bedside today. Please see my progress note from today for further detail. Once transportation arrangement is done, then patient is medically stable for discharge to telemetry floor at other hospital. Total time spent to arrange discharge of this patient is more than 30 minutes. JON
[2017-09-09] MEDS: traMADol HCl 50 MG TAB PO PRN (18:21)
[2017-09-09] MEDS: Atorvastatin Calcium 20 MG TAB PO SCH (20:37)
[2017-09-09 23:07] VITALS: BP 107/37; TEMP 99.4
== END 2017-09-09 21:32 | disposition short-term general hospital (02) | DRG 280 ==
LOC: ERS 20:09 → 2NO 22:20 → IMCU/EMU 09-06 14:12
PROVIDERS: ADMIT Internal Medicine; ATTEND Internal Medicine
PROC: 4A023N7 Measurement of Cardiac Sampling and Pressure, Left Heart, Percutaneous Approach (ICD-10-PCS; 2017-09-07)
PROC: B2111ZZ Fluoroscopy of Multiple Coronary Arteries using Low Osmolar Contrast (ICD-10-PCS; 2017-09-07)
PROC: B2151ZZ Fluoroscopy of Left Heart using Low Osmolar Contrast (ICD-10-PCS; 2017-09-07)
PROC: 3E1M39Z Irrigation of Peritoneal Cavity using Dialysate, Percutaneous Approach (ICD-10-PCS; principal; 2017-09-08)
DX: I35.0 Nonrheumatic aortic (valve) stenosis (principal); N18.6 End stage renal disease; I21.A1 Myocardial infarction type 2; I95.9 Hypotension, unspecified; E11.22 Type 2 diabetes mellitus with diabetic chronic kidney disease; I12.0 Hypertensive chronic kidney disease with stage 5 chronic kidney disease or end stage renal disease; E87.1 Hypo-osmolality and hyponatremia; I48.0 Paroxysmal atrial fibrillation; N25.81 Secondary hyperparathyroidism of renal origin; I70.1 Atherosclerosis of renal artery; I25.10 Atherosclerotic heart disease of native coronary artery without angina pectoris; Z99.2 Dependence on renal dialysis; Z95.828 Presence of other vascular implants and grafts; Z79.4 Long term (current) use of insulin; K21.9 Gastro-esophageal reflux disease without esophagitis; D72.829 Elevated white blood cell count, unspecified; D63.1 Anemia in chronic kidney disease; R11.2 Nausea with vomiting, unspecified; R19.7 Diarrhea, unspecified; T78.8XXA Other adverse effects, not elsewhere classified, initial encounter; I44.7 Left bundle-branch block, unspecified
CPT/HCPCS: 36415; 36416; 80048; 80061; 80069; 82274; 82533; 82553; 83605; 84484; 85025; 87045; 87046; 87070; 87205; 87324; 87328; 87329; 87449; 87899; 90945; 93005; 93010; 93306; 93458; 94760; 96374; A4216; C1769; C9113; G0257; G8978-GP-CK; G8979-GP-CJ; G8987-GO-CM; G8988-GO-CJ; J0692; J1644; J1815; J2001; J2405; J2765; J3010; Q4081